=== PATIENT | female | born 1950 | race Caucasian/White ===

== ENCOUNTER 2017-11-30 12:00 | Emergency (ER) | payer MEDICAID ==
--- NOTE | 2017-11-30 14:59 | ULT ---
LEFT LOWER EXTREMITY VENOUS DOPPLER WITH SPECTRAL ANALYSIS AND COLOR FLOW EVALATION: DATE: 11/30/17. HISTORY: Left lower extremity pain and swelling for 1 week. Left leg edema. FINDINGS: Cope scale, color flow, Doppler evaluation, and spectral analysis of the left lower extremity venous structures is performed with 2D imaging. The left lower extremity common femoral, superficial femora l, popliteal, posterior tibial, most proximal greater saphenous, and profunda femoral veins are image d. There is normal lumen compressibility, flow, and augmentation in the visualized deep venous structure s of the left lower extremity. IMPRESSION: No evidence of a deep vein thrombosis involving the visualized deep venous structures left lower extr emity. POS: [facility]
== END 2017-11-30 14:55 | disposition home or self-care (01) ==
LOC: ERS 12:00
DX: R60.0 Localized edema (principal); E78.5 Hyperlipidemia, unspecified; F17.210 Nicotine dependence, cigarettes, uncomplicated

== ENCOUNTER 2017-12-09 13:15 | Outpatient (CLI) | payer MEDICARE, MEDICAID | END 2017-12-09 13:16 | disposition home or self-care (01) | LOC: BICRAD 13:15 | PROVIDERS: ATTEND Internal Medicine | DX: J44.9 Chronic obstructive pulmonary disease, unspecified (principal) | CPT/HCPCS: 71046 ==

== ENCOUNTER 2017-12-28 15:36 | Emergency (ER) | payer MEDICARE, OTHER ==
[2017-12-28 16:24] LABS: Hemoglobin 12.8 g/dL (12.0-16.0); Mean Corpuscular HGB CONC 33.6 g/dL (32.0-36.0); Mean Corpuscular Hemoglobin 32.1 pg (27.0-31.0); Mean Corpuscular Volume 95.5 fl (81.0-99.0); Mean Platelet Volume 6.6 fL (7.4-10.4); Platelet Count 160 thou/uL (130-400); RBC Distribution Width 12.8 % (11.5-14.5); White Blood Cell (WBC) Count 6.3 thou/uL (4.8-10.8)
[2017-12-28 16:43] LABS: ALT (SGPT) 50 U/L (8-55); AST (SGOT) 90 U/L (5-34); Albumin 2.9 g/dL (3.4-4.8); Alkaline Phosphatase 128 U/L (40-150); Anion Gap 10 mmol/L (10-20); BUN (Urea Nitrogen) 11 mg/dL (9.8-20.1); Bilirubin, Total 1.1 mg/dL (0.2-1.2); Calc. Creatinine Clearance 0 mL/min (70-130); Calcium 8.3 mg/dL (7.8-10.44); Carbon Dioxide 24 mmol/L (23-31); Chloride 108 mmol/L (98-107); Eosinophils 1 % (0-10); Estimated GFR-MDRD Greater than 90; Globulin 2.3 g/dL (2.4-3.5); Glucose 146 mg/dL (80-115); Lipase 58 U/L (8-78); Lymphocytes 6 % (21-51); MDiff Complete? YES; Monocytes 9 % (0-10); Neutrophil 84 % (42-75); PLT Morphology Comment Appears Adequate; Potassium 3.7 mmol/L (3.5-5.1); Protein, Total 5.2 g/dL (6.0-8.3); Sodium 138 mmol/L (136-145)
[2017-12-28 16:47] LABS: CKMB 0.8 ng/mL (0-6.6); Troponin I Less than 0.010 ng/mL (< 0.028)
[2017-12-28] MEDS ORDERED: Ibuprofen 200 MG TAB ONE (16:49)
--- NOTE | 2017-12-28 17:53 | RAD ---
AP VIEW CHEST: INDICATIONS: History of abdomen and leg swelling with shortness of breath. FINDINGS: No focal consolidation is evident. No definite pleural effusion is noted. Heart size and pulmonary vasculature are within normal limits. No acute osseous abnormality is evident. IMPRESSION: No focal consolidation, pleural effusion, or pneumothorax demonstrated. POS: [facility]
== END 2017-12-28 18:00 | disposition home or self-care (01) ==
LOC: ERS 15:36
DX: M79.89 Other specified soft tissue disorders (principal); E78.5 Hyperlipidemia, unspecified; F17.210 Nicotine dependence, cigarettes, uncomplicated; Z79.899 Other long term (current) drug therapy
CPT/HCPCS: 71045; 80053; 82553; 83690; 83880; 84484; 85025; 93005

== ENCOUNTER 2017-12-31 08:41 | Outpatient (CLI) | payer MEDICARE, OTHER ==
[2017-12-31] MEDS ORDERED: ISOVUE-370 76%-LOCM 1 ML ONE (11:37)
== END 2017-12-31 08:42 | disposition home or self-care (01) ==
LOC: BICCT 08:41
PROVIDERS: ATTEND Internal Medicine
DX: R60.0 Localized edema (principal); M79.89 Other specified soft tissue disorders; R18.8 Other ascites; R16.1 Splenomegaly, not elsewhere classified; J90 Pleural effusion, not elsewhere classified; K44.9 Diaphragmatic hernia without obstruction or gangrene; Z90.49 Acquired absence of other specified parts of digestive tract
CPT/HCPCS: 74177

== ENCOUNTER 2018-01-15 07:30 | Day surgery (SDC) | payer MEDICARE, MEDICAID ==
[2018-01-15 08:06] LABS: INR-International Normal Ratio 1.5; PTT 34.9 SEC (22.9-36.1)
[2018-01-15] MEDS ORDERED: Sodium Bicarbonate 2.5 MEQ/5 ML VIAL ONE (08:33)
--- NOTE | 2018-01-15 10:37 | ULT ---
ULTRASOUND GUIDED ABDOMINAL PARACENTESIS: Date: 01/15/18 INDICATION: Cirrhosis with ascites. FINDINGS: 4900 mL of yellow, cloudy ascitic fluid removed from the right lower quadrant. PROCEDURE NOTE: Four quadrant ultrasound shows moderate ascites in all quadrants. Right lower quadrant was chosen for puncture. The overlying skin was prepped and draped in the sterile manner. Local anesthesia was admi nistered with lidocaine and bicarb. Tiny incision made. A 5 [place] [employer] catheter with needle in place was introduced into the ascitic fluid in the right lower quadrant under ultrasound guidance. Cathete r was advanced as needle was removed. Catheter was attached to suction drainage. 4900 mL of yellowish , cloudy removed. There were no problems or complications. POS: [facility]
[2018-01-15 11:07] LABS: BF Color Yellow; Body Fluid Source Ascites Body Fluid; Clarity Hazy (Clear); Tube # EDTA
[2018-01-15 11:09] LABS: BF WBC/Nonhematics Ct. - Manua 175 /cumm
[2018-01-15 11:10] LABS: BF RBC Count - Manual 255 /cumm
[2018-01-15 11:34] LABS: BF Segmented Neutrophils 21 %; Cell Count Non Hematic 60 %; Lymphocytes 19 %
[2018-01-15 12:25] LABS: Ref Lab Test Ordered FL NA; Reference Lab Name LABCORP
[2018-01-15 14:57] VITALS: BP 138/75; TEMP 98.5
[2018-01-15 15:08] VITALS: BMI 26.0
== END 2018-01-15 09:30 | disposition home or self-care (01) ==
LOC: ULT 07:30
PROVIDERS: ATTEND Internal Medicine Gastroenterology
PROC: 0W9G3ZZ Drainage of Peritoneal Cavity, Percutaneous Approach (ICD-10-PCS; principal; 2018-01-15)
PROC: BW40ZZZ Ultrasonography of Abdomen (ICD-10-PCS; 2018-01-15)
DX: R18.8 Other ascites (principal); K74.60 Unspecified cirrhosis of liver; Z79.51 Long term (current) use of inhaled steroids; Z79.899 Other long term (current) drug therapy
CPT/HCPCS: 36415; 49083; 82042; 84157; 85060; 85610; 85730; 87070; 87116; 87205; 87206; 89051

== ENCOUNTER 2018-10-22 08:04 | Outpatient (CLI) | payer MEDICARE, MEDICAID ==
[2018-10-22] MEDS ORDERED: Gadobenate Dimeglumine 529 MG/1 ML (20ML VIAL) ONE (12:38)
--- NOTE | 2018-10-25 11:28 | MRI ---
MRI ABDOMEN WITH AND WITHOUT CONTRAST: Date: 10/22/18 HISTORY: R18.8 ascites, B18.2 chronic hepatitis. Abnormal liver function tests. COMPARISON: None. FINDINGS: No pleural effusion. No pericardial effusion. Within hepatic segment VIII is a mass measuring 2.3 cm, which does not have arterial phase hyperenhan cement, although has an enhancing capsule. No significant washout. There are intrinsic T1 hyperintense nodules in hepatic segment VII measures 7.0 mm and 8.0 mm on axia l series 1, images 19 and 25, respectively, suggesting regenerative nodules. The hepatic segment VIII mass is not seen on the prior CT from 12/31/17. Spleen is unremarkable. Adrenal glands unremarkable. No hydronephrosis. No abnormal renal enhancing m ass. Aortic contour is nonaneurysmal. Background marrow signal appears normal Simple cyst inferior pole left kidney measuring 4.0 mm. No dilated loops of bowel in the abdomen. Paraspinal musculature is normal. IMPRESSION: 1. 2.3 cm mass hepatic segment VIII is LI-RADS 4: Probably HCC. This mass does not have arterial ph ase hyperenhancement, although does have an enhancing capsule without washout. This mass was not seen on the CT abdomen or pelvis dated 12/31/17, and this could be due to location and the differences in modalities, although if you count threshold growth as not seen on prior examination, this would make this a LI-RADS 5. Either way, this is highly suspicious for hepatocellular carcinoma and appropriate action should be taken. 2. Interval resolution of ascites seen on the 12/31/17 examination. 3. No other acute abnormality within the abdomen or pelvis. 4. Mild background hepatic cirrhosis. POS: [facility]
== END 2018-10-22 08:05 | disposition home or self-care (01) ==
LOC: MRI 08:04
PROVIDERS: ATTEND Physician Assistant Medical
DX: B18.2 Chronic viral hepatitis C (principal); K70.31 Alcoholic cirrhosis of liver with ascites; R97.8 Other abnormal tumor markers; R19.4 Change in bowel habit; I85.00 Esophageal varices without bleeding; R16.0 Hepatomegaly, not elsewhere classified
CPT/HCPCS: 74183; 82565; A9577

== ENCOUNTER 2020-05-28 06:15 | Outpatient (CLI) | payer MEDICARE, OTHER ==
[2020-05-29 13:00] LABS: SARS-CoV-2 MS2 Positive; SARS-CoV-2 N Gene Negative; SARS-CoV-2 S Gene Negative; SARS-CoV-2 by NAA Not Detected (NotDetected); SARS-CoV-2 orf1ab Negative
== END 2020-05-28 06:16 | disposition home or self-care (01) ==
LOC: LABBT 06:15
PROVIDERS: ATTEND Internal Medicine Gastroenterology
DX: Z20.828 Contact with and (suspected) exposure to other viral communicable diseases (principal)
CPT/HCPCS: 87635; U0003

== ENCOUNTER 2020-05-31 08:29 | Day surgery (SDC) | payer MEDICARE, MEDICAID ==
[2020-05-29 11:42] VITALS: BMI 23.6
[2020-05-31] MEDS ORDERED: PROPOFOL 200 MG/20 ML VIAL ONE (10:22)
[2020-05-31] MEDS ORDERED: Lidocaine 1% PF 5 ML VIAL ONE (10:22)
--- NOTE | 2020-05-31 14:33 | OP ---
DATE OF PROCEDURE: 05/31/2020 TITLE OF PROCEDURE: Esophagogastroduodenoscopy with biopsy. PREPROCEDURE DIAGNOSES: 1. Cirrhosis. 2. History of small esophageal varices, surveillance exam. POSTPROCEDURE DIAGNOSES: 1. Exam to 2nd portion of duodenum. 2. Grade 1-2 distal esophageal varices with no sign of recent or active bleeding. 3. Small hiatal hernia. 4. Few erosions in the distal esophagus, not biopsied. 5. Mild diffuse portal gastropathy involving body of the stomach, biopsied. 6. No duodenal or gastric ulcer. 7. Normal duodenum. PROCEDURE IN DETAIL: Written informed consent was obtained. The patient was brought to the endoscopy suite. Total intravenous anesthesia was administered by Tyrell Lees CRNA. The patient was placed in the left lateral decubitus position. A bite block was inserted into the mouth. A [employer]ax video diagnostic gastroscope was introduced into the oral cavity and the esophagus was carefully intubated. The gastroscope was advanced under direct visualization to the 2nd portion of the duodenum. ENDOSCOPIC FINDINGS: Revealed a small, grade 1-2 distal esophageal varices. One column of grade 2 varix was noted from 33 cm to 37 cm from the incisors. With adequate insufflation, all of the varices flattened adequately to me all the varices flattened. There is no evidence of recent or active bleeding from the esophageal varices. A few small erosions were noted at the GE junction, but were not biopsied. A small less than 1 cm sliding hiatal hernia was also noted. The stomach was entered and carefully examined. This included a retroflexed view of the cardia and fundus. No gastric varices or ulcer was identified. Mucosal changes consistent with mild portal gastropathy was noted in the body of the stomach and biopsies were obtained for histology. The duodenum from the bulb to the 2nd portion was then inspected and appeared grossly normal. No duodenal varices were identified. The stomach was decompressed as the endoscope was completely removed from the patient. There were no immediate complications. She was transferred to the Day Stay surgery area for postprocedure monitoring. RECOMMENDATIONS: 1. Await biopsy results. 2. Initiate omeprazole for 20 mg daily for the next 4 weeks. 3. Repeat EGD in one year for varices surveillance. 4. Follow up with me in the office in 6 months. 5. Continue to follow up with [facility] in [place] for ongoing treatment of her liver cancer. 6. Resume previous diet and medications. Job ID: [id number] MTDD
== END 2020-05-31 11:00 | disposition home or self-care (01) ==
LOC: SDC 08:29
PROVIDERS: ATTEND Internal Medicine Gastroenterology
PROC: 0DB68ZX Excision of Stomach, Via Natural or Artificial Opening Endoscopic, Diagnostic (ICD-10-PCS; principal; 2020-05-31)
DX: K70.30 Alcoholic cirrhosis of liver without ascites (principal); I85.10 Secondary esophageal varices without bleeding; K44.9 Diaphragmatic hernia without obstruction or gangrene; K22.10 Ulcer of esophagus without bleeding; K31.89 Other diseases of stomach and duodenum; C22.0 Liver cell carcinoma; B18.2 Chronic viral hepatitis C; M19.90 Unspecified osteoarthritis, unspecified site; J45.909 Unspecified asthma, uncomplicated; I10 Essential (primary) hypertension; Z86.73 Personal history of transient ischemic attack (TIA), and cerebral infarction without residual deficits; Z87.891 Personal history of nicotine dependence; Z79.01 Long term (current) use of anticoagulants; Z79.899 Other long term (current) drug therapy
CPT/HCPCS: 88305; 88312; J2704

== ENCOUNTER 2020-08-14 14:42 | Inpatient (IN) | payer MEDICARE, OTHER ==
[~2020-08-14 14:42] MED LIST: Iopamidol-370 76% 500 ML 1 ML ONE
[2020-08-14 15:41] LABS: #Basophils 0.1 thou/uL (0.0-0.2); #Eosinphils 0.1 thou/uL (0.0-0.7); #Lymphocytes 0.6 thou/uL (1.20-3.40); #Monocytes 1.4 thou/uL (0.11-0.59); #Neutrophils 8.4 thou/uL (1.40-6.50); %Basophils 1.1 % (0.0-1.0); %Eosinophils 0.9 % (0.0-10.0); %Lymphocytes 5.7 % (21.0-51.0); %Monocytes 13.3 % (0.0-10.0); Hemoglobin 14.3 g/dL (12.0-16.0); Mean Corpuscular HGB CONC 32.8 g/dL (32.0-36.0); Mean Corpuscular Hemoglobin 31.6 pg (27.0-31.0); Mean Corpuscular Volume 96.2 fL (78.0-98.0); Mean Platelet Volume 6.5 fL (7.4-10.4); Platelet Count 130 thou/uL (130-400); RBC Distribution Width 14.5 % (11.5-14.5); Red Blood Cell (RBC) Count 4.54 mill/uL (4.20-5.40); White Blood Cell (WBC) Count 10.6 thou/uL (4.8-10.8)
[2020-08-14 15:48] LABS: INR-International Normal Ratio 1.4; PTT 35.4 sec (22.9-36.1); Prothrombin Time 17.1 sec (12.0-14.7)
--- NOTE | 2020-08-14 15:58 | RAD ---
PORTABLE CHEST: 08/14/20 PROVIDED CLINICAL HISTORY: Shortness of breath. FINDINGS: Comparison 03/28/20. There is a large right pleural effusion with presumed adjacent passive atelectasis involving the righ t lung. The visualized cardiac and mediastinal silhouette is within normal limits. The left lung appe ars clear. There is no evidence for pneumothorax. IMPRESSION: Large right pleural effusion. POS: [facility]
[2020-08-14 16:06] LABS: ALT (SGPT) 44 U/L (8-55); AST (SGOT) 64 U/L (5-34); Albumin 3.1 g/dL (3.4-4.8); Alkaline Phosphatase 141 U/L (40-110); Anion Gap 15 mmol/L (10-20); BUN (Urea Nitrogen) 33 mg/dL (9.8-20.1); Bilirubin, Total 3.1 mg/dL (0.2-1.2); Calc. Creatinine Clearance 0 mL/min (70-130); Carbon Dioxide 25 mmol/L (23-31); Chloride 95 mmol/L (98-107); Glucose 157 mg/dL (80-115); Potassium 5.8 mmol/L (3.5-5.1); Protein, Total 6.1 g/dL (6.0-8.3); Sodium 129 mmol/L (136-145)
[2020-08-14] MEDS ORDERED: Dextrose 5% in Water 1,000 ML IV PRN (16:34)
[2020-08-14] MEDS ORDERED: Dextrose 50% Abboject 50 ML SYRINGE SLOW IVP PRN (16:34)
[2020-08-14] MEDS ORDERED: Bisacodyl 10 MG SUPP PR PRN (16:34)
[2020-08-14] MEDS ORDERED: Senokot S 8.6-50 MG TAB PO PRN (16:34)
[2020-08-14] MEDS ORDERED: Calcium Carbonate 500 MG ChewTAB PO PRN (16:34)
[2020-08-14] MEDS ORDERED: Ondansetron PF 4 MG/2 ML Vial IVP PRN (16:34)
--- NOTE | 2020-08-14 17:16 | HP ---
REASON FOR ADMISSION: Progressive worsening of lower extremity swelling, shortness of breath, severe orthopnea, history of liver cancer with metastasis. HISTORY OF PRESENTING ILLNESS: The patient gives history of going to [facility] Room twice in the last week and has gotten doses of Lasix for increasing edema in lower extremities. This was getting worse to the point that she was unable to lie down. She went to see Dr. Alyse Drubin, her GI specialist, here and was asked to come to the emergency room for hospitalization. She uses cane to mobilize herself. She has known history of liver cancer and has been on chemotherapy at [facility]. She is unable to recall the name of her oncologist. She does not know the name of the chemo medications she is on. No complaints of abdominal pain as such. No nausea or vomiting. She has not been able to eat or drink for last week or so due to increasing fluid in her belly and lower extremities and thinks that there is fluid in her lungs. PAST MEDICAL AND SURGICAL HISTORY: History of liver cancer, on chemotherapy, the details of which the patient is not able to provide me. She has either hepatitis B or C which was apparently treated per the patient and again she is not so sure. The patient is a poor historian. She tells me to call her son, but he is not available on the phone, and needs multiple prompting to be spoken to. We will try to obtain further history from Dr. Durbin's office. Appendectomy, cholecystectomy, hysterectomy, dyslipidemia. The patient is on Eliquis, likely from arrhythmias or DVT which she is not able to provide me the details again. CURRENT MEDICATIONS: The patient is on: 1. K-Dur. 2. Metformin extended release 500 mg p.o. daily. 3. Spironolactone 100 mg p.o. daily. 4. [place] p.r.n. for pain. 5. Lasix 20 mg twice daily. 6. Glipizide 2.5 mg p.o. daily. 7. Omeprazole 20 mg p.o. daily. 8. Canagliflozin 100 mg p.o. daily. 9. Lipitor 5 mg p.o. at bedtime. 10. Nadolol 20 mg p.o. daily. ALLERGIES: NO KNOWN DRUG ALLERGIES. PERSONAL HISTORY: Does not abuse alcohol or drugs. No history of smoking. She ambulates with a cane. FAMILY HISTORY: Mother in her 80s, she of natural causes. Father at the age of 78, she does not recall the exact cause of his . CODE STATUS: Do not attempt to resuscitate. Power of health care attorney is her son. REVIEW OF SYSTEMS: CONSTITUTIONAL: Negative for weight loss or gain, ability to conduct usual activities. SKIN: Negative for rash, itching. EYES: Negative for double vision, pain. ENT/MOUTH: Negative for nose bleeding, neck stiffness, pain, tenderness. CARDIOVASCULAR: Negative for palpitations, dyspnea on exertion, orthopnea. RESPIRATORY: Negative for shortness of breath, wheezing, cough, hemoptysis, fever or night sweats. GASTROINTESTINAL: Negative for poor appetite, abdominal pain, heartburn, nausea, vomiting, constipation, or diarrhea. GENITOURINARY: Negative for urgency, frequency, dysuria, nocturia. MUSCULOSKELETAL: Negative for pain, swelling. NEUROLOGIC/PSYCHIATRIC: Negative for anxiety, depression. ALLERGY/IMMUNOLOGIC: Negative for skin rash, bleeding tendency. PHYSICAL EXAMINATION: GENERAL: The patient is a 69-year-old female, who is currently in [id number] respiratory distress with shortness of breath. VITAL SIGNS: Blood pressure 140/64, pulse 96 per minute, respiratory rate 20 per minute, temperature 97.4 degrees Fahrenheit, saturating 94% on room air. NECK: Supple. No elevated JVD. EYES: There is icterus plus. Pupils are reacting to light. ORAL CAVITY: Mucous membranes are dry. No exudates or congestion. CARDIOVASCULAR SYSTEM: S1 and S2 heard, regular rhythm. RESPIRATORY SYSTEM: There is decreased air entry in the right infrascapular area. ABDOMEN: Distended, has diffuse tenderness. No rigidity or guarding. The patient likely has ascites with fluid thrill. EXTREMITIES: There is 2+ peripheral edema. No calf tenderness. VASCULAR SYSTEM: Peripheral pulses 1+ bilateral. No ischemic ulcers or gangrene. CENTRAL NERVOUS SYSTEM: No gross focal deficits noted. The patient is alert and oriented well. PSYCHIATRIC SYSTEM: The patient is a bit irritable due to shortness of breath, otherwise no hallucinations or delusions. LABORATORY DATA: Chest x-ray done shows large right pleural effusion. Sodium 129, potassium 5.8, BUN 33, creatinine 0.7, serum bicarb 25, serum glucose 157, AST 64, ALT 44, total bilirubin 3.1, alkaline phosphatase 141. BNP 52. Albumin 3.1. PT and INR 17 and 1.4, PTT 35. White count of 10, H and H 14 and 43, platelet count is 130, MCV is 96 with 79% neutrophils. EKG done shows sinus tach at 104 beats per minute. CLINICAL IMPRESSION AND PLAN: The patient will be admitted to medical floor for anasarca with history of liver cancer and metastasis. The patient is unable to tell me the prognosis of her cancer and wants me to talk to Dr. Durbin regarding the same. She is also unable to provide who her oncologist is at [facility] to obtain more details. We will try to obtain all this information from Dr. Alyse Durbin, her primary felt checker here. She will be on Lasix 40 mg IV at [address] a[address] Armendariz, felt checker, has been consulted from ER. We will continue her spironolactone and nadolol along with Pepcid and Ultram. The patient does not want to be resuscitated. She has expressed that at bedside to me here. We will obtain consultation with Dr. Bell in view of likely right-sided pleural effusion from liver cancer with either due to low albumin or maybe because of cancer for possible PleurX catheter for self drainage if the patient agrees. She has orthopnea and likely will refill her pleural space along with ascites plus the peripheral edema which is making her miserable at present. Likely, this might give her comfort. Job ID: [id number]
--- NOTE | 2020-08-14 18:00 | CT ---
CT ABDOMEN AND PELVIS WITH IV CONTRAST 08/14/2020 CLINICAL INFORMATION: Abdominal pain, history of liver cancer. Lower extremity swelling for 5 days. COMPARISON: 12/31/2017 and MRI abdomen on 03/29/2020 Technique: Multiple contiguous axial CT images are obtained through the abdomen and pelvis with IV contrast. Cor onal reformatted images are provided. FINDINGS: Lower Chest: Partial visualization of a moderately large right pleural effusion. There is consolidati on at the right lung base probably attributable to passive atelectasis, but pneumonia would be difficult to exclude. Left lung base is clear. Vessels: Vascular calcifications are seen in the abdominal aorta and involving the iliac arteries. Abdomen: Portal vein:There is occlusion of the main portal vein as well as the right and left portal veins wit h findings suggestive of mild cavernous transformation in the bigg hepatis. Prominent varices are seen in the region of the gastrohepatic ligament as well as prominent esophageal varices. Filling def ects are also seen extending into the splenic vein and into the superior mesenteric vein compatible with thrombus. Gallbladder: Surgically removed. Liver: Liver is small in size with cirrhotic morphology. Previously noted large mass in involving the right hepatic lobe is much smaller in size with heterogeneity present in this region on today's exam. Area of heterogeneity is greater in the region of the dome of the liver. No new lesion is appre ciated. Spleen: Not enlarged and has a normal appearance. Pancreas: within normal limits. Adrenals: within normal limits. Kidneys: within normal limits. Bowel: The colon is decompressed, but the rutledge of the colon do appear mildly thickened. These findin gs could be related to colitis or possibly secondary to venous congestion related to the occluded portal vein and partial thrombus in the superior mesenteric vein. Rutledge of portions of the duodenum a lso appear mildly thickened which could be related to venous congestion and/or peristalsis. There are no findings to suggest a bowel obstruction. Appendix: Not definitely visualized. Peritoneum: There is a small amount of ascites predominantly in the pelvis. There is also evidence of prominent mesenteric edema. No fluid collection is seen. Mesentery and Retroperitoneum: No enlarged mesenteric or retroperitoneal lymph nodes. Abdominal Wall: Mild subcutaneous edema is seen. There is suggestion of mild skin thickening involvin g each breast. Pelvis: Reproductive Organs: Evidence of hysterectomy. Bladder: Mostly decompressed and not well evaluated. Bones: No suspicious lytic or sclerotic osseous lesions are identified. IMPRESSION: 1. Moderately large right pleural effusion incompletely imaged with associated consolidation probably attributable to passive atelectasis. Pneumonia right lung base cannot be excluded. 2. Cirrhotic morphology of the liver. The large mass in the right hepatic lobe has decreased in size compared to prior exam but heterogeneity in the right hepatic lobe does persist. 3. Portal vein thrombosis with thrombus extending into the splenic vein near the confluence as well a s extending into the superior mesenteric vein. 4. Small amount of ascites and prominent mesenteric edema. Mesenteric edema is likely related to veno us congestion. 5. Prominent esophageal varices as well as prominent varices in the region of the gastrohepatic ligam ent with evidence of cavernous transformation at the bigg hepatis. 6. Mild thickening involving the colon extending from the cecum to the distal descending colon. This may in part be related to incomplete distention and venous congestion. Colitis cannot be entirely excluded.
--- NOTE | 2020-08-14 19:01 | CT ---
CTA OF THE CHEST WITH CONTRAST 08/14/20 COMPARISON: Chest x-ray 08/14/20 and 03/28/20. MRI of the abdomen 03/29/20. HISTORY: Lower extremity swelling for four to five days with increased difficulty with breathing. Patient has liver cancer and is on chemotherapy for the liver cancer. TECHNIQUE: Multiple contiguous axial images were obtained in a CTA of the chest with contrast per pulmonary embo lism protocol. 3D oblique MIP reformats and direct coronal reformats were performed. FINDINGS: The pulmonary arteries are well opacified without filling defects to suggest pulmonary emboli. The he art is normal in size without focal cardiac abnormality. No hilar or mediastinal lymphadenopathy is s een. There is a moderate right pleural effusion with adjacent atelectasis. This has developed since the chest x-ray from 03/28/20. No focal infiltrates are seen in the lungs. No left sided pleural effusion is seen. No focal osseous abnormality is seen. Diffuse soft tissue anasarca is present. The liver is nodular a nd cirrhotic. There is an abnormal morphology of the right lobe of the liver which may represent the patient's right sided hepatic mass seen on prior MRI. There is likely still thrombus within the bigg l vein which is enlarged with extension of the thrombus into the superior mesenteric vein. There are mildly enlarged retroperitoneal and bigg hepatis lymph nodes. Varices are seen in the splenic region and retroperitoneum. There is thickening of the gastroesophageal junction of the distal esophagus. IMPRESSION: 1. No evidence of pulmonary thromboembolism. 2. Moderate right pleural effusion with adjacent atelectasis. This has developed since the chest x-ray on 03/28/20. 3. Cirrhotic liver with mass in the right lobe of the liver. There is thrombus in the portal vei n extending into the superior mesenteric vein and enlarged lymph nodes in the abdomen. POS: [facility]
[2020-08-14 19:29] LABS: Troponin I Less than 0.010 ng/mL (< 0.028)
[2020-08-14] MEDS: Mometasone 200 MCG/Formoterol 5 MCG 120 PUFF INHALER INH SCH ×2 (19:49→22:30)
[2020-08-14] MEDS ORDERED: Heparin 5,000 UNITS/ML VIAL SC SCH (21:00)
[2020-08-14 21:18] LABS: Hemoglobin 13.5 g/dL (12.0-16.0); Platelet Count 115 thou/uL (130-400)
[2020-08-14 21:44] LABS: Troponin I Less than 0.010 ng/mL (< 0.028)
--- NOTE | 2020-08-14 21:54 | ULT ---
BILATERAL LOWER EXTREMITY VENOUS ULTRASOUND: 08/14/20 COMPARISON: None. HISTORY: Bilateral lower extremity pain and edema. TECHNIQUE: Multiplanar arzate scale and color Doppler images were obtained in a bilateral lower extremity venous ultrasound. Spectral analysis of the Doppler waveforms were performed. FINDINGS: The bilateral common femoral veins, profunda femoral veins, and superficial femoral veins and poplite al veins are normal in appearance without visible thrombus. These vessels demonstrate normal compress ion, flow and augmentation. The posterior tibial veins and greater saphenous veins are also patent. IMPRESSION: No evidence of DVT. POS: [facility]
[2020-08-14] MEDS: Heparin 10,000 UNITS/ 10 ML VIAL SLOW IVP SCH (22:56)
[2020-08-14] MEDS: Heparin 25,000 units/D5W 500 ML IVPB SCH (22:58)
[2020-08-14] MEDS: Famotidine 20 MG TAB PO SCH (22:58)
--- NOTE | 2020-08-15 02:22 | CON ---
DATE OF CONSULTATION: 08/14/2020 REASON FOR CONSULTATION: History of cirrhosis with hepatocellular carcinoma, possible GI bleeding. CONSULTING PROVIDER: Dr. Rodney Hawkins. HISTORY OF PRESENT ILLNESS: The patient is a 69-year-old female with past medical history of osteoarthritis, asthma, hypertension, prior CVA, chronic hepatitis C, status post treatment with Epclusa in 2018, and cirrhosis of the liver complicated by ascites and hepatocellular carcinoma for which the patient is undergoing chemotherapy, presenting with complaints of shortness of breath, anasarca, and possible melenic-type stool. She states that she was in her usual state of health until approximately 3-4 days ago when she began having significantly increased lower extremity edema that was accompanied by increased abdominal swelling and weight gain. She describes that during this period, she had been having a decreased appetite and was not eating her normal food stuffs, although she was not consuming higher salt content meals at that time as well. Over the next few days, it slowly progressed into increased shortness of breath with difficulty breathing, and ultimately prompted her to be seen at the [facility] ER at which point, they diagnosed her with what sounds like a possible pleural effusion. She was given some diuretic therapy and discharged to home. With nonresponse to the oral diuretics, the patient ultimately came to the GI Clinic for further evaluation and was noted to have again significant shortness of breath with conversational dyspnea. However, she also stated she had approximately one black stool around 3 days ago that was semi solid/liquid in consistency, and easy to clean off. She denies any use of iron supplementation or Pepto-Bismol. However, this one episode of black stool resolved. After this particular episode, she has not had any further episodes since. Other than the above symptoms, she currently denies any nausea, vomiting, fevers, chills, hematemesis, hematochezia, dysphagia, odynophagia, constipation or weight loss. REVIEW OF SYSTEMS: 10-category review of systems was obtained with all responses negative except for the pertinent positives as listed in HPI. PAST MEDICAL HISTORY: As per HPI. PAST SURGICAL HISTORY: Appendectomy, cholecystectomy, hysterectomy, and recent chemotherapy/radiation for HCC. FAMILY HISTORY: Denies any GI malignancies. SOCIAL HISTORY: Denies any tobacco, alcohol, or illicit drug use. OUTPATIENT MEDICATIONS: Reviewed. ALLERGIES: NO KNOWN DRUG ALLERGIES. PHYSICAL EXAMINATION: VITAL SIGNS: Pulse 97, blood pressure 131/75, respiratory rate 24, saturating 91% on room air. GENERAL: The patient was sitting in a chair at bedside, in no acute distress. Alert and oriented x4. HEENT: Normocephalic, atraumatic. NECK: Supple. No JVD noted, but mild scleral icterus noted. CARDIOVASCULAR: Tachycardic rate, but regular rhythm with no discernible murmurs, gallops, or rubs. RESPIRATORY: Clear to auscultation in the left upper and left lower lobes, however, decreased breath sounds were auscultated in the right upper lobe with mild crackles and significantly decreased/diminished breath sounds in the right lower lobe. ABDOMEN: Normoactive bowel sounds. Soft. Mild abdominal distention, tenderness to palpation in all abdominal quadrants. EXTREMITIES: 2+/3+ edema noted in the bilateral lower extremities and extending into the thighs and lower abdomen. LABORATORY DATA: CBC with a white blood cell count of 10.6, hemoglobin 14.3, hematocrit 43.7, platelets 130. Chemistry with a sodium of 129, potassium 5.8, chloride 95, CO2 of 25, BUN 33, creatinine 0.77, glucose 157, AST 64, ALT 44, alkaline phosphatase 141, total bilirubin 3.1, albumin 3.1. INR 1.4. IMAGING DATA: CT of the abdomen and pelvis was obtained on August 14, 2020, which showed partial visualization of a moderately large right pleural effusion with consolidation of the right lung base, probably attributed to passive atelectasis, but pneumonia could not be excluded at this time. Also seen were an occlusion of the main portal vein as well as the right and left portal veins with findings suggestive of mild cavernous transformation in the bigg hepatis. Prominent varices were seen in this region, however, filling defects were also seen extending into the splenic vein and into the superior mesenteric vein compatible with a nonocclusive thrombus. The liver was small in size with cirrhotic morphology. The previously noted large mass involving the right hepatic lobe was actually much smaller when compared to prior examination. No new lesions were appreciated. The colon also did show a decompressed nature with possible mildly thickened rutledge, but no evidence of obstruction. A small amount of ascites was predominantly seen only in the pelvis, but did show evidence of prominent mesenteric edema. Her abdominal ultrasound was also obtained on August 14, 2020, with results still pending at this time. Paracentesis was also performed on August 14, 2020, with no pockets of fluid, able to be found large enough to perform paracentesis. ASSESSMENT AND PLAN: The patient is a 69-year-old female with past medical history of osteoarthritis, asthma, hypertension, cerebrovascular accident, chronic hepatitis C, status post treatment in 2018, and cirrhosis complicated by prior ascites and hepatocellular carcinoma, currently undergoing chemotherapy/radiation, now presenting with anasarca and extension of the portal vein thrombosis into the splenic vein and superior mesenteric vein. Anasarca/portal vein thrombosis: The patient is presenting with a fairly acute onset of significant lower extremity edema extending into the lower abdomen with minimal amount of ascites seen on both physical examination and current imaging, however, on imaging there is noted an extension of the portal vein thrombus now extending into the splenic vein and the superior mesenteric vein, which could be potentially contributing to increased portal pressures and edema in the lower extremities and abdomen. When compared to an MRI obtained in March 2020 this is extension of thrombus into the superior mesenteric vein and splenic vein is a new finding, and will need to be intervened upon given the increased risk of small bowel infarction if allowed to continue. This finding could also to passive venous congestion and contribute to the abdominal pain exhibited on physical examination today. Recommendations: 1. Would start the patient on a heparin drip with careful monitoring of the patient for possible gastrointestinal bleeding, especially in light of her recent black stool. 2. Would continue to trend her H and H and transfuse as necessary to maintain an H and H of 7/21. 3. Continue to monitor clinically for signs of active gastrointestinal bleeding. 4. The patient will ultimately need to be placed back either on Eliquis as an outpatient on discharge or a different anticoagulation given that the fact that this extensive thrombus formed while on anticoagulation. 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 They could further lead to this formation. Given the large pleural effusion, I would think the patient would benefit from diuretic management largely with furosemide. Use of spironolactone is normally recommended in patients with cirrhosis, but given her elevated potassium, risk of hyperkalemia is increased and I would hold off on this particular medication for now. Recommendations: 1. I agree with placing the patient on furosemide 40 mg IV b.i.d. 2. Would hold spironolactone for now given her hyperkalemia. 3. Would place the patient on a low-sodium diet. Cirrhosis with hepatocellular carcinoma: The patient is presenting with a prior history of cirrhosis with most likely etiology being chronic hepatitis C infection, currently presenting with decompensated disease with a Child-Negron classification B, and calculated MELD sodium score of 21. Currently, the patient is undergoing treatment as part of her hepatocellular carcinoma with Dr. Riky Moss in [place] with most recent bout of chemotherapy/radiation approximately 2 weeks ago. It is unclear if the chemotherapy medication or the radiation may be contributing to further clot formation within the portal system or this is developing on its own. Recommendations: 1. Would continue to monitor the patient's H and H during this admission, especially in light of active malignancy and anticoagulation needed for dissolution of the superior mesenteric vein thrombus. 2. The patient will ultimately need to be discharged to outpatient clinic and followup in [place] for further treatment of her hepatocellular carcinoma. We will continue to follow. Please call with any questions. Job ID: [id number]
[2020-08-15 05:14] LABS: ALT (SGPT) 37 U/L (8-55); AST (SGOT) 51 U/L (5-34); Albumin 2.7 g/dL (3.4-4.8); Alkaline Phosphatase 119 U/L (40-110); Anion Gap 13 mmol/L (10-20); BUN (Urea Nitrogen) 28 mg/dL (9.8-20.1); Bilirubin, Total 2.6 mg/dL (0.2-1.2); Calc. Creatinine Clearance 84 mL/min (70-130); Calcium 8.2 mg/dL (7.8-10.44); Carbon Dioxide 24 mmol/L (23-31); Chloride 98 mmol/L (98-107); Globulin 2.5 g/dL (2.4-3.5); Glucose 165 mg/dL (80-115); Potassium 6.1 mmol/L (3.5-5.1); Protein, Total 5.2 g/dL (6.0-8.3); Sodium 129 mmol/L (136-145)
[2020-08-15 05:21] LABS: PTT Greater than 250.0 sec (22.9-36.1)
[2020-08-15 05:30] LABS: Band 5 % (5-11); Hemoglobin 13.3 g/dL (12.0-16.0); Lymphocytes 5 % (21-51); MDiff Complete? YES; Mean Corpuscular HGB CONC 31.7 g/dL (32.0-36.0); Mean Corpuscular Hemoglobin 31.6 pg (27.0-31.0); Mean Corpuscular Volume 99.7 fL (78.0-98.0); Monocytes 4 % (0-10); Neutrophil 84 % (42-75); Platelet Count 114 thou/uL (130-400); Platelet Morphology Comment Appears Decreased; RBC Distribution Width 14.9 % (11.5-14.5); White Blood Cell (WBC) Count 11.6 thou/uL (4.8-10.8)
[2020-08-15] MEDS: Furosemide 40 MG/4 ML VIAL SLOW IVP SCH ×2 (05:43→14:26)
--- NOTE | 2020-08-15 07:34 | ULT ---
EXAM: US Abdomen Limited PROVIDED CLINICAL HISTORY: Cirrhosis with worsening abdominal distention. COMPARISON: Abdominal ultrasound 03/29/2020 FINDINGS: Limited sonographic evaluation of the bilateral upper and lower quadrants of the abdomen was performe d. No free intraperitoneal fluid is seen in the abdomen. There was evidence of ascites on prior examination which is not appreciated on the current study. IMPRESSION: No evidence of ascites.
[2020-08-15] MEDS ORDERED: Potassium Chloride 10 MEQ TAB PO SCH (08:00)
[2020-08-15] MEDS ORDERED: Spironolactone 100 MG TAB PO SCH (08:00)
[2020-08-15 08:13] LABS: PTT Greater than 250.0 sec (22.9-36.1)
[2020-08-15 09:22] LABS: SARS-CoV-2 MS2 Positive; SARS-CoV-2 N Gene Negative; SARS-CoV-2 S Gene Negative; SARS-CoV-2 by NAA Not Detected (NotDetected); SARS-CoV-2 orf1ab Negative
[2020-08-15] MEDS: Nadolol 40 MG TAB PO SCH (09:30)
[2020-08-15] MEDS: Famotidine 20 MG TAB PO SCH ×2 (09:30→21:15)
[2020-08-15] MEDS: traMADol HCl 50 MG TAB PO PRN (09:59)
[2020-08-15] MEDS: Heparin 10,000 UNITS/ 10 ML VIAL SLOW IVP SCH (11:46)
[2020-08-15] MEDS: Mometasone 200 MCG/Formoterol 5 MCG 120 PUFF INHALER INH SCH ×2 (13:22→18:59)
--- NOTE | 2020-08-15 17:19 | PDOC.HOSPP ---
- Subjective Encounter Date: 08/15/20 Encounter Time: 17:05 Subjective: f/u for anasarca/portal vein thrombosis in context of metastatic liver carcinoma on current chemotherapy. Receiving Lasix/Spironolactone/Heparin gtt/Nadolol. Cisse catheter placed due to retention. - Objective Vital Signs & Weight: Vital Signs (12 hours) Temp Pulse Resp BP Pulse Ox 08/15/20 08:00 97.5 F L 90 16 120/56 L 97 Weight Weight 157 lb 14.4 oz Result Diagrams: 08/15/20 04:45 08/15/20 04:45 Additional Labs: Accuchecks 08/15/20 08/15/20 08/14/20 16:20 11:10 21:03 POC Glucose 122 H 114 H 149 H Microbiology 08/15/20 12:35 Stool C. difficile GDH Antigen & Toxins - Final Laboratory Tests 08/14/20 08/14/20 08/14/20 15:22 15:26 15:26 WBC 10.6 Sodium 129 L Potassium 5.8 H Total Bilirubin 3.1 H AST 64 H B-Natriuretic Peptide 52.4 SARS-CoV-2 (PCR) 08/14/20 08/15/20 23:10 04:45 WBC Sodium Potassium Total Bilirubin 2.6 H AST 51 H B-Natriuretic Peptide SARS-CoV-2 (PCR) Not Detected Radiology Reviewed by me: Yes (CT abd - + portal vein thrombus, ascites, cirrh otic liver/mass noted) Hospitalist ROS - Medication Medications: Active Medications Generic Name Dose Route Start Last Admin Trade Name Freq PRN Reason Stop Dose Admin Famotidine 20 mg 08/14/20 21:00 08/15/20 09:30 Famotidine 20 Mg Tab PO 20 mg BID JERO Administration Furosemide 40 mg 08/15/20 06:00 08/15/20 14:26 Furosemide 40 Mg/4 Ml Vial SLOW IVP 40 mg 0600,1400 JERO Administration Heparin Sodium (Porcine) 0 units 08/14/20 21:00 08/15/20 11:46 Heparin 10,000 Units/ 10 Ml Vial SLOW IVP 2,960 units ASDIR JERO Administration Protocol Heparin Sodium/Dextrose 500 mls @ 0 mls/hr 08/14/20 21:00 08/14/20 22:58 Heparin 25,000 Units/D5w IVPB 500 mls INF JERO Administration Protocol Per Protocol Mometasone Furoate/Formoterol Fumar 2 puff 08/14/20 18:30 08/15/20 13:22 Mometasone 200 Mcg/Formoterol 5 Mcg 120 Puff Inhaler INH Not Given BID-RT JERO Nadolol 20 mg 08/15/20 09:00 08/15/20 09:30 Nadolol 40 Mg Tab PO 20 mg DAILY JERO Administration Tramadol HCl 50 mg 08/14/20 16:34 08/15/20 09:59 Tramadol Hcl 50 Mg Tab PO 50 mg QIDPRN PRN Administration Moderate Pain (4-6) - Exam General Appearance: awake alert, ill appearing General - other findings: responsive, alert Eye: PERRL, scleral icterus ENT: normocephalic atraumatic, no oropharyngeal lesions Neck: supple, symmetric, no JVD, no thyromegaly, no lymphadenopathy Heart: RRR, no gallops, no rubs, normal peripheral pulses Heart - other findings: S1, S2 Respiratory: rales, tachypneic Respiratory - other findings: diminished in bases R>L Gastrointestinal: normal bowel sounds, no palpable masses, no guarding Gastrointestinal - other findings: distended, fluid wave Extremities: no cyanosis, 2+ LE edema Skin: normal turgor Neurological: cranial nerve grossly intact, no new deficit Musculoskeletal: normal tone, generalized weakness Psychiatric: A&O x 3, flat affect Hosp A/P (1) Hepatic carcinoma Code(s): C22.0 - LIVER CELL CARCINOMA Status: Chronic Plan: Receiving outpt chemotherapy, advanced process (2) Anasarca Code(s): R60.1 - GENERALIZED EDEMA Status: Acute Plan: Continue Lasix IV/Spironolactone, monitor for improvement (3) Portal vein thrombosis Code(s): I81 - PORTAL VEIN THROMBOSIS Status: Acute Plan: Continue Heparin gtt, likely will need OAC for d/c (4) Hyperkalemia Code(s): E87.5 - HYPERKALEMIA Status: Acute Plan: Continue Lasix IV, serial K+ monitoring (5) Hepatic cirrhosis Code(s): K74.60 - UNSPECIFIED CIRRHOSIS OF LIVER Status: Chronic Plan: Continue Spironolactone/Lasix/Nadolol (6) Diabetes mellitus type II, controlled Code(s): E11.9 - TYPE 2 DIABETES MELLITUS WITHOUT COMPLICATIONS Status: Chronic Plan: ISS, hold Metformin/Glipizide, ADA - Plan cisse catheter, PT/OT, clinical social work therapist, out of bed/ambulate Consults: Palliative Care Continue diuresis with Lasix IV Continue Spironolactone Appreciate GI assistance Continue Heparin gtt Consider Pleur-X catheter Palliative care consult AM lab: CMP, CBC, PTT
[2020-08-15 21:53] LABS: PTT Greater than 250.0 sec (22.9-36.1)
[2020-08-16 04:32] LABS: ALT (SGPT) 37 U/L (8-55); AST (SGOT) 52 U/L (5-34); Albumin 2.5 g/dL (3.4-4.8); Alkaline Phosphatase 121 U/L (40-110); Anion Gap 10 mmol/L (10-20); BUN (Urea Nitrogen) 27 mg/dL (9.8-20.1); Bilirubin, Total 2.3 mg/dL (0.2-1.2); Calc. Creatinine Clearance 86 mL/min (70-130); Calcium 8.2 mg/dL (7.8-10.44); Carbon Dioxide 28 mmol/L (23-31); Chloride 95 mmol/L (98-107); Globulin 2.5 g/dL (2.4-3.5); Glucose 123 mg/dL (80-115); Sodium 128 mmol/L (136-145)
[2020-08-16 05:01] LABS: Band 3 % (5-11); Eosinophils 2 % (0-10); Hemoglobin 13.4 g/dL (12.0-16.0); Lymphocytes 9 % (21-51); MDiff Complete? YES; Mean Corpuscular HGB CONC 32.5 g/dL (32.0-36.0); Mean Corpuscular Hemoglobin 31.4 pg (27.0-31.0); Mean Corpuscular Volume 96.6 fL (78.0-98.0); Mean Platelet Volume 6.9 fL (7.4-10.4); Monocytes 20 % (0-10); Neutrophil 66 % (42-75); Platelet Count 104 thou/uL (130-400); Platelet Morphology Comment Appears Decreased; RBC Distribution Width 14.8 % (11.5-14.5); RBC Morphology Normal; Red Blood Cell (RBC) Count 4.27 mill/uL (4.20-5.40); White Blood Cell (WBC) Count 7.7 thou/uL (4.8-10.8)
[2020-08-16] MEDS: Furosemide 40 MG/4 ML VIAL SLOW IVP SCH ×2 (05:13→13:22)
[2020-08-16] MEDS: Heparin 25,000 units/D5W 500 ML IVPB SCH (05:17)
--- NOTE | 2020-08-16 06:13 | PRG ---
DATE OF SERVICE: 08/15/2020 SUBJECTIVE: Ms. Sage had a little bit of diarrhea today and C difficile has been sent, which was negative. Otherwise, she feels about the same. I am told by the nurse that she has been getting Lasix. MEDICATIONS: 1. Pepcid 20 mg b.i.d. 2. Furosemide 40 mg IV q.12. 3. Glucagon 1 mg p.r.n. 4. heparin drip. 5. Insulin sliding scale. 6. Albuterol inhaler. 7. Nadolol 20 mg p.o. daily. 8. Zofran p.r.n. 9. Senna. 10. Tramadol 50 mg daily. OBJECTIVE: VITAL SIGNS: Temperature is 97.8, pulse 88, blood pressure 105/56 to 120/56, weight 157 today, not recorded yesterday. Urine output 1200 mL. LUNGS: Clear. Decreased breath sounds on the right. HEART: Regular rhythm. ABDOMEN: Soft, nontender. No palpable splenomegaly. Imaging ultrasound showed no ascites. Tap could not be done yesterday. CT chest showed no PE. Moderate right pleural effusion new since 03/28/2020, cirrhotic liver mass with thrombus in the portal vein extending into the superior mesenteric vein and large lymph nodes in the abdomen the splenic vein. These extensions are reportedly new. Cavernous transformation of the bigg hepatis change in the abdomen and esophageal varices. Last EGD 05/31/2020. Grade 1 to 2 distal esophageal varices with no stigmata. Diffuse portal gastropathy. LABORATORY DATA: Today, bilirubin is 2.6. AST and ALT are 51 and 37, alkaline phosphatase 119. ASSESSMENT: 1. Patient has had a little bit of increased fluid retention. This may be related to progression of portal vein thrombosis to splenic vein and SMV. I agree with changing anticoagulation to heparin. 2. She has a hepatoma which is nonoperable. She is not a transplant candidate. She has received radiation treatment for the clot to see if that would help stem progression of blood clotting and prevent failure. She has received two courses of chemo now. This may have also exacerbated some of her fluid retention, but I imagine that the progression of clots is the main factor which is concerning. 3. No signs of ascites. No signs of infection at this time. 4. Hemoglobin stable. She does have portal hypertensive gastropathy which is severe. RECOMMENDATIONS: 1. I would change her to PPI for ulcer prophylaxis and I would add back her spirolactone 100 mg a day. She is not receiving it presently in the hospital. We will touch base with her dry mill worker in [place] tomorrow to see if there is any much else to do. I think that there is not. 2. She is not a candidate for a PleurX catheter. This is hepatic hydrothorax and would result in prompt development of renal failure and the catheter will never be able to remove. This is not a viable palliative measure nor therapeutic measure. Job ID: [id number]
[2020-08-16] MEDS: Mometasone 200 MCG/Formoterol 5 MCG 120 PUFF INHALER INH SCH ×2 (07:56→19:28)
[2020-08-16 07:58] LABS: PTT 187.4 sec (22.9-36.1)
[2020-08-16] MEDS: traMADol HCl 50 MG TAB PO PRN (08:07)
[2020-08-16] MEDS: Spironolactone 100 MG TAB PO SCH (08:09)
[2020-08-16] MEDS: Nadolol 40 MG TAB PO SCH (08:12)
--- NOTE | 2020-08-16 11:17 | PDOC.HOSPP ---
- Subjective Encounter Date: 08/16/20 Encounter Time: 08:00 Subjective: Patient seen and examined bedside today, patient subjectively does not complain of anything, denies any shortness of breath or fever, - Objective Vital Signs & Weight: Vital Signs (12 hours) Temp Pulse Resp BP Pulse Ox 08/16/20 08:55 62 18 08/16/20 08:49 98.3 F 46 L 95/53 L 93 L 08/16/20 08:00 97.3 F L 64 95/53 L 93 L 08/16/20 07:57 96 08/16/20 07:56 63 16 96 08/16/20 03:50 60 93 L 08/16/20 00:00 65 95 Weight Weight 152 lb 12.8 oz I&O: 08/15/20 08/16/20 08/17/20 06:59 06:59 06:59 Intake Total 790 Output Total 2553 Balance -1763 Result Diagrams: 08/16/20 03:49 08/16/20 03:49 Additional Labs: Accuchecks 08/15/20 08/15/20 08/15/20 20:44 16:20 11:10 POC Glucose 152 H 122 H 114 H Radiology Reviewed by me: Yes Hospitalist ROS - Review of Systems Constitutional: reports: weakness. denies: fever, chills, sweats, malaise, other Respiratory: denies: cough, dry, shortness of breath, hemoptysis, SOB with excertion, pleuritic pain, sputum, wheezing, other Cardiovascular: denies: chest pain, palpitations, orthopnea, paroxysmal noc. dyspnea, edema, light headedness, other Gastrointestinal: denies: nausea, vomiting, abdominal pain, diarrhea, constipation, melena, hematochezia, other Genitourinary: denies: dysuria, frequency, incontinence, hematuria, retention, other Musculoskeletal: denies: neck pain, shoulder pain, arm pain, back pain, hand pain, leg pain, foot pain, other - Medication Medications: Active Medications Generic Name Dose Route Start Last Admin Trade Name Freq PRN Reason Stop Dose Admin Famotidine 20 mg 08/14/20 21:00 08/15/20 21:15 Famotidine 20 Mg Tab PO 20 mg BID JERO Administration Furosemide 40 mg 08/15/20 06:00 08/16/20 05:13 Furosemide 40 Mg/4 Ml Vial SLOW IVP 40 mg 0600,1400 JERO Administration Heparin Sodium (Porcine) 0 units 08/14/20 21:00 08/15/20 11:46 Heparin 10,000 Units/ 10 Ml Vial SLOW IVP 2,960 units ASDIR JERO Administration Protocol Heparin Sodium/Dextrose 500 mls @ 0 mls/hr 08/14/20 21:00 08/16/20 05:17 Heparin 25,000 Units/D5w IVPB 500 mls INF JERO Administration Protocol Per Protocol Mometasone Furoate/Formoterol Fumar 2 puff 08/14/20 18:30 08/16/20 07:56 Mometasone 200 Mcg/Formoterol 5 Mcg 120 Puff Inhaler INH 2 puff BID-RT JERO Administration Nadolol 20 mg 08/15/20 09:00 08/16/20 08:12 Nadolol 40 Mg Tab PO Not Given DAILY JERO Spironolactone 100 mg 08/16/20 08:00 08/16/20 08:09 Spironolactone 100 Mg Tab PO Not Given QAM-WM JERO Tramadol HCl 50 mg 08/14/20 16:34 08/16/20 08:07 Tramadol Hcl 50 Mg Tab PO 50 mg QIDPRN PRN Administration Moderate Pain (4-6) - Exam General Appearance: NAD, awake alert Eye: PERRL ENT: normocephalic atraumatic, no oropharyngeal lesions Neck: supple, symmetric, no JVD Heart: RRR, no murmur, no gallops, no rubs Respiratory: no wheezes, no rales, no ronchi Respiratory - other findings: Air entry reduced on the right side Gastrointestinal: soft, non-tender, non-distended Gastrointestinal - other findings: Extremities: no clubbing, 1+ LE edema Skin: normal turgor, no lesions Neurological: no new deficit Musculoskeletal: normal tone, normal strength Psychiatric: normal affect, normal behavior, A&O x 3 Hosp A/P (1) Hyperkalemia Code(s): E87.5 - HYPERKALEMIA Status: Acute (2) Portal vein thrombosis Code(s): I81 - PORTAL VEIN THROMBOSIS Status: Acute (3) Diabetes mellitus type II, controlled Code(s): E11.9 - TYPE 2 DIABETES MELLITUS WITHOUT COMPLICATIONS Status: Chronic (4) Hepatic carcinoma Code(s): C22.0 - LIVER CELL CARCINOMA Status: Chronic (5) Hepatic cirrhosis Code(s): K74.60 - UNSPECIFIED CIRRHOSIS OF LIVER Status: Chronic (6) Hyponatremia Code(s): E87.1 - HYPO-OSMOLALITY AND HYPONATREMIA Status: Acute (7) Anasarca Code(s): R60.1 - GENERALIZED EDEMA Status: Acute - Plan old records reviewed/req Patient is currently on heparin drip as per gastroenterology for portal vein thrombosis Continue Lasix, Aldactone, Corgard for portal hypertension Gastroenterology following and the recommendation appreciated, will monitor labs daily Because of low blood pressure patient is not able to get her medication Her long-term prognosis is poor, Palliative care consulted
[2020-08-16] MEDS: Famotidine 20 MG TAB PO SCH (12:22)
[2020-08-16] MEDS: HumaLOG 300 UNITS/3 ML VIAL SC PRN ×2 (12:23→16:20)
--- NOTE | 2020-08-16 16:03 | PRG ---
DATE OF SERVICE: 08/16/2020 SUBJECTIVE: Ms. Sage has no acute complaints. She is lying in bed and has a Cisse catheter in, states that she is not getting up and moving around because of the Cisse catheter. She has no nausea or vomiting. Still has some discomfort in her lower extremities with edema. OBJECTIVE: VITAL SIGNS: Temperature is 98.3, pulse 63, blood pressure 103/57. GENERAL: She is in no acute distress. Alert and oriented x3. LUNGS: Clear to auscultation bilaterally. HEART: Regular rate and rhythm without murmur. ABDOMEN: Soft, nontender, and nondistended. Bowel sounds are present. EXTREMITIES: 2+ pitting lower extremity edema. LABORATORY DATA: White blood cell count 7.7, hemoglobin 13.4, platelets 104. Creatinine 0.71, sodium 128, potassium 5.0, chloride 95, CO2 of 28, BUN 27, bilirubin 2.6, AST 52, ALT 37, alkaline phosphatase 121, albumin 2.5. IMPRESSION: 1. Anasarca. The abdominal and lower extremity edema seems to be the primary symptom she was having that brought her in. On discussion with the patient, she has a bag with over 20 medications in it and she is not clear on what she really should and should not be taking. She quit taking all of her medicines a couple of days before she came in except for the Invokana and codeine and furosemide which she increased herself to 40 mg twice daily. She has been receiving furosemide IV 40 mg twice daily here in the hospital and has lost 9 pounds over the last 3 days. Her spironolactone was held when she came in due to hyperkalemia, however, she was also taking potassium supplements. At this point, I think we will continue the furosemide 40 mg twice daily, which can be transitioned to oral dosing likely tomorrow and continue the spironolactone 100 mg daily and stop the potassium supplement. 2. Polypharmacy - she has been confused about which medications she is supposed to be taking as an outpatient and quit taking most of them a couple of days before admission. 3. Portal vein thrombosis with extension to the splenic vein and superior mesenteric vein. Of all the medicines in her bag, the Eliquis is not included. She is not sure when she quit taking Eliquis. She at least quit taking it a couple of days before she came in, but it might have been long before that as she states these are all her medications and Eliquis is not a part of them. 4. Cirrhosis with portal hypertension. 5. Hepatocellular carcinoma. She is scheduled to go back for chemotherapy in a week. RECOMMENDATIONS: 1. I spoke with her gas golf cart repairer in [place], Dr. Moss. He spoke with patient's oncologist. Per oncology, she can transition to eliquis for anticoagulation. 2. Physical therapy reports she could ambulate well, and is able to get to the bed-side toilet without assistance. The cisse catheter will be removed. 3. She does have ibuprofen and naproxen with her home medications. She was advised to avoid all NSAIDs and we will restart proton pump inhibitor. 4. I would anticipate she should be able to discharge home over the next couple of days when she has her medications figured out and her electrolytes are stabilized from a diuretic standpoint. She can just keep her followup with her oncologist in a week in [place] and remain on Eliquis for the blood clots. Job ID: [id number] Addendum: 08/16/20 20:07. Nursing reports patient passed a bright red bloody stool. We will stop the heparin and not start the eliquis now. Recheck the hemoglobin in an hour and in the morning. The thrombus might be tumor thrombus rather than blood clot which might not respond all that well to anticoagulation anyway (which is why she was receiving radiation for it and has been apparently off the eliquis. With the extension now to the SMV, there is risk for bowel infarction, so plan has been to restart anticoagulation, but now this is complicated by bleed. If she has persistent bleeding or melena or hemodynamic changes, we will start octreotide in light of the known varices/cirrhosis. [facility]
[2020-08-16] MEDS ORDERED: Heparin 10,000 UNITS/ 10 ML VIAL SLOW IVP SCH (16:15)
[2020-08-16] MEDS ORDERED: Heparin 25,000 units/D5W 500 ML IVPB SCH (16:15)
[2020-08-16 16:57] LABS: Hemoglobin 15.1 g/dL (12.0-16.0); Platelet Count 136 thou/uL (130-400)
[2020-08-16] MEDS ORDERED: Apixaban 5 MG TAB PO SCH (21:00)
[2020-08-16 21:10] LABS: Hemoglobin 13.9 g/dL (12.0-16.0)
[2020-08-17] MEDS: traMADol HCl 50 MG TAB PO PRN (01:44)
[2020-08-17] MEDS: Guaifenesin DM 100-10/5 ML UDCUP PO PRN ×3 (01:45→13:09)
[2020-08-17] MEDS ORDERED: Furosemide 40 MG/4 ML VIAL SLOW IVP SCH (02:00)
[2020-08-17] MEDS: Cepastat Lozenges 1 LOZ PO PRN ×2 (03:18→06:09)
[2020-08-17 04:09] LABS: Hemoglobin 14.3 g/dL (12.0-16.0)
[2020-08-17 04:27] LABS: Anion Gap 12 mmol/L (10-20); BUN (Urea Nitrogen) 24 mg/dL (9.8-20.1); Calc. Creatinine Clearance 71 mL/min (70-130); Calcium 8.4 mg/dL (7.8-10.44); Carbon Dioxide 29 mmol/L (23-31); Chloride 94 mmol/L (98-107); Glucose 146 mg/dL (80-115); Potassium 4.3 mmol/L (3.5-5.1); Sodium 131 mmol/L (136-145)
[2020-08-17] MEDS: Furosemide 40 MG/4 ML VIAL SLOW IVP SCH ×2 (06:09→13:09)
[2020-08-17] MEDS: Mometasone 200 MCG/Formoterol 5 MCG 120 PUFF INHALER INH SCH ×2 (07:41→19:07)
[2020-08-17] MEDS: Spironolactone 100 MG TAB PO SCH (08:32)
[2020-08-17] MEDS: Nadolol 40 MG TAB PO SCH (08:33)
[2020-08-17 08:38] LABS: Hemoglobin 14.9 g/dL (12.0-16.0)
--- NOTE | 2020-08-17 10:57 | PDOC.HOSPP ---
- Subjective Encounter Date: 08/17/20 Encounter Time: 10:00 Subjective: Patient seen and examined bedside today, patient had earlier diarrhea, she is feeling physically weak, no overnight event, no fever, no hematochezia, her H&H remained stable, - Objective Vital Signs & Weight: Vital Signs (12 hours) Temp Pulse Resp BP Pulse Ox 08/17/20 07:42 91 L 08/17/20 07:41 68 16 91 L 08/17/20 07:03 99.2 F 67 16 113/61 94 L 08/17/20 06:07 73 124/64 08/17/20 03:10 65 18 107/60 08/17/20 02:50 67 16 92 L Weight Weight 150 lb 2 oz I&O: 08/16/20 08/17/20 08/18/20 06:59 06:59 06:59 Intake Total 790 801 470 Output Total 2553 1850 Balance -1763 -1049 470 Result Diagrams: 08/17/20 08:30 08/17/20 03:53 Additional Labs: Accuchecks 08/16/20 08/16/20 08/16/20 20:39 15:54 11:50 POC Glucose 156 H 185 H 155 H Hospitalist ROS - Review of Systems Constitutional: reports: weakness ENT: denies: ear pain, ear discharge, nose pain, nose discharge, nose congestion, mouth pain, mouth swelling, throat pain, throat swelling, other Respiratory: denies: cough, dry, shortness of breath, hemoptysis, SOB with excertion, pleuritic pain, sputum, wheezing, other Cardiovascular: denies: chest pain, palpitations, orthopnea, paroxysmal noc. dyspnea, edema, light headedness, other Gastrointestinal: reports: diarrhea. denies: nausea, vomiting, abdominal pain, constipation, melena, hematochezia, other Genitourinary: denies: dysuria, frequency, incontinence, hematuria, retention, other Musculoskeletal: denies: neck pain, shoulder pain, arm pain, back pain, hand pain, leg pain, foot pain, other - Medication Medications: Active Medications Generic Name Dose Route Start Last Admin Trade Name Freq PRN Reason Stop Dose Admin Albuterol/Ipratropium 3 ml 08/17/20 01:59 08/17/20 02:50 Ipratropium/Albuterol Sulfate 3 Ml Neb NEB 3 ml [id number] PRN Administration SOB &/or Wheezing Furosemide 40 mg 08/15/20 06:00 08/17/20 06:09 Furosemide 40 Mg/4 Ml Vial SLOW IVP 40 mg 0600,1400 JERO Administration Guaifenesin/Dextromethorphan 15 ml 08/14/20 16:34 08/17/20 08:34 Guaifenesin Dm 100-10/5 Ml Udcup PO 15 ml Q4H PRN Administration Cough Insulin Human Lispro 0 units 08/14/20 16:34 08/16/20 16:20 Humalog 300 Units/3 Ml Vial SC 2 unit .MODERATE SLIDING SC PRN Administration Moderate Correctional Scale Mometasone Furoate/Formoterol Fumar 2 puff 08/14/20 18:30 08/17/20 07:41 Mometasone 200 Mcg/Formoterol 5 Mcg 120 Puff Inhaler INH 2 puff BID-RT JERO Administration Nadolol 20 mg 08/15/20 09:00 08/17/20 08:33 Nadolol 40 Mg Tab PO 20 mg DAILY JERO Administration Ondansetron HCl 4 mg 08/14/20 16:34 08/17/20 02:44 Ondansetron Pf 4 Mg/2 Ml Vial IVP 4 mg Q6H PRN Administration Nausea/Vomiting Pantoprazole Sodium 40 mg 08/17/20 09:00 08/17/20 08:34 Pantoprazole 40 Mg Tab PO 40 mg DAILY JERO Administration Spironolactone 100 mg 08/16/20 08:00 08/17/20 08:32 Spironolactone 100 Mg Tab PO 100 mg QAM-WM JERO Administration Throat Lozenges 1 kaylah 08/17/20 01:58 08/17/20 06:09 Cepastat Lozenges 1 Kaylah PO 1 kaylah Q2H PRN Administration Sore Throat Tramadol HCl 50 mg 08/14/20 16:34 08/17/20 01:44 Tramadol Hcl 50 Mg Tab PO 50 mg QIDPRN PRN Administration Moderate Pain (4-6) - Exam General Appearance: NAD, awake alert Eye: PERRL, anicteric sclera ENT: normocephalic atraumatic, no oropharyngeal lesions Neck: symmetric, no JVD Heart: RRR, no murmur, no gallops, no rubs Respiratory: no wheezes, no rales, no ronchi Gastrointestinal: soft, non-distended, normal bowel sounds Extremities: no cyanosis, no clubbing, no edema Skin: normal turgor, no lesions Neurological: no focal deficits Musculoskeletal: normal tone, normal strength Hosp A/P (1) Portal vein thrombosis Code(s): I81 - PORTAL VEIN THROMBOSIS Status: Acute (2) Hyperkalemia Code(s): E87.5 - HYPERKALEMIA Status: Resolved (3) Diabetes mellitus type II, controlled Code(s): E11.9 - TYPE 2 DIABETES MELLITUS WITHOUT COMPLICATIONS Status: Chronic (4) Hepatic carcinoma Code(s): C22.0 - LIVER CELL CARCINOMA Status: Chronic (5) Hepatic cirrhosis Code(s): K74.60 - UNSPECIFIED CIRRHOSIS OF LIVER Status: Chronic (6) Hyponatremia Code(s): E87.1 - HYPO-OSMOLALITY AND HYPONATREMIA Status: Acute (7) Anasarca Code(s): R60.1 - GENERALIZED EDEMA Status: Acute - Plan old records reviewed/req Patient had yesterday hematochezia but her H&H remained stable, will consider restarting Eliquis after GI evaluation Medication reviewed and continue with symptomatic and supportive care Per patient she does not have any way to go home today and she is not feeling good today because of diarrhea and weakness, will reassess her tomorrow Patient will follow up with her developer trading systems and oncologist after discharge. Gastroenterology recommendation appreciated.
--- NOTE | 2020-08-17 11:16 | PDOC.FMACP ---
Advance Care Planning - Problem (1) Palliative care encounter Status: Acute Code(s): Z51.5 - ENCOUNTER FOR PALLIATIVE CARE (2) Anasarca Status: Acute Code(s): R60.1 - GENERALIZED EDEMA (3) Hyponatremia Status: Acute Code(s): E87.1 - HYPO-OSMOLALITY AND HYPONATREMIA (4) Portal vein thrombosis Status: Acute Code(s): I81 - PORTAL VEIN THROMBOSIS (5) Diabetes mellitus type II, controlled Status: Chronic Code(s): E11.9 - TYPE 2 DIABETES MELLITUS WITHOUT COMPLICATIONS (6) Hepatic carcinoma Status: Chronic Code(s): C22.0 - LIVER CELL CARCINOMA (7) Hepatic cirrhosis Status: Chronic Code(s): K74.60 - UNSPECIFIED CIRRHOSIS OF LIVER - Note Participants: patient, palliative care Summary: Palliative care introduced Advanced Care Planning. The diagnosis, prognosis and goals of care were discussed. Appropriate forms and documentation to accomplish the goals of care were discussed. All questions were answered. Stated she desires to be with full resuscitation measures. Completed MPOA and Directive to physician. Original given to patient and copies placed on chart. In addressing Goal of care the patient confirmed that she has no assistance in the home setting. Discussed she desires to follow up with her oncologist in [place] at discharge for consideration of continuation of treatment. Palliative Care will follow at a distance, and if needed will revisit Goal of care as well as assist with complex decision making. Time Spent (mins): 40
[2020-08-17] MEDS: HumaLOG 300 UNITS/3 ML VIAL SC PRN ×2 (11:27→16:40)
[2020-08-17 15:14] LABS: Hemoglobin 13.4 g/dL (12.0-16.0)
--- NOTE | 2020-08-17 18:00 | PRG ---
DATE OF SERVICE: 08/17/2020 SUBJECTIVE: Ms. Sage had a small bloody stool last night and then another one early this morning, which was described as red blood mixed with brown stool. She had another stool that was nonbloody. She has had some cramping left lower quadrant to diffuse abdominal pain associated with that. No nausea or vomiting. She is tolerating a solid diet. OBJECTIVE: VITAL SIGNS: Temperature 97.9, pulse 60, blood pressure 100/59. GENERAL: She is in no acute distress. Alert and oriented x3. LUNGS: Clear to auscultation bilaterally. HEART: Regular rate and rhythm without murmur. ABDOMEN: Has mild tenderness in the upper abdomen without guarding. Bowel sounds are present. EXTREMITIES: No lower extremity edema. LABORATORY DATA: Hemoglobin is 13.4, creatinine 0.81. Bilirubin 2.3, AST 52, ALT 37, alkaline phosphatase 121. IMPRESSION: 1. Cirrhosis of the liver. 2. Hepatocellular carcinoma. 3. Portal vein thrombosis with new extension to the SMV. This is primarily tumor thrombus and she has been treated with radiation for previously. Given the extension of the blood clot to the SMV, she has been started on anticoagulation initially with heparin. The plan was to change back to Eliquis. I did speak with her advertising rep, Dr. Moss in [place], who also spoke with her oncologist who felt that it would be reasonable to switch to the longer-term anticoagulation with the expected chemotherapy. This is now complicated with the rectal bleeding that occurred yesterday. 4. Hematochezia. This is likely hemorrhoidal type bleeding. She has brown stool mixed with red stool. Her hemoglobin is stable. Her last bowel movement was early this morning before day shift came on. RECOMMENDATIONS: 1. If she has no further overt GI bleeding and her hemoglobin remained stable, then we can start her back on heparin and if she does okay with that for a couple of days, then we can then transition to Eliquis. 2. The plan is for her to follow up with her oncologist in [place] next week as scheduled. Job ID: [id number]
[2020-08-18] MEDS: Guaifenesin DM 100-10/5 ML UDCUP PO PRN ×2 (03:03→19:27)
[2020-08-18 05:13] LABS: Anion Gap 11 mmol/L (10-20); BUN (Urea Nitrogen) 21 mg/dL (9.8-20.1); Calc. Creatinine Clearance 80 mL/min (70-130); Carbon Dioxide 25 mmol/L (23-31); Chloride 97 mmol/L (98-107); Glucose 190 mg/dL (80-115); Potassium 4.3 mmol/L (3.5-5.1); Sodium 129 mmol/L (136-145)
[2020-08-18] MEDS: Furosemide 40 MG/4 ML VIAL SLOW IVP SCH ×2 (05:47→13:17)
[2020-08-18] MEDS: HumaLOG 300 UNITS/3 ML VIAL SC PRN ×2 (05:47→13:16)
--- NOTE | 2020-08-18 05:49 | PRG ---
DATE OF SERVICE: 08/16/2020 ADDENDUM: I spoke with the patient's automotive painter helper, Dr. Riky Moss down in [place]. The patient is on a new chemotherapy regimen, which could potentially increase bleeding risk with Eliquis. It is uncertain whether the thrombus, which is extended now to the mesenteric vein is truly thrombus versus tumor and whether or not anticoagulation will truly help or not. She does have known varices, but they are only grade 1 to 2 previously. For now, we will keep the heparin going and Dr. Moss will speak with the patient's oncologist in [place]. Options include changing her chemotherapy regimen, so that she could start back on Eliquis or other blood thinner versus alternative anticoagulation with her current chemotherapy. Pending this decision, we will continue heparin and await discussion between her automotive painter helper and oncologist in [place]. In the meantime, she has been restarted on her proton pump inhibitor. We will follow the trend of her electrolytes as we are adjusting her diuretics. We will need to continue to follow her weight daily. Job ID: [id number]
[2020-08-18] MEDS: traMADol HCl 50 MG TAB PO PRN (05:50)
[2020-08-18 06:17] LABS: Band 3 % (5-11); Eosinophils 5 % (0-10); Hemoglobin 13.4 g/dL (12.0-16.0); Lymphocytes 5 % (21-51); MDiff Complete? YES; Mean Corpuscular HGB CONC 31.4 g/dL (32.0-36.0); Mean Corpuscular Hemoglobin 30.4 pg (27.0-31.0); Mean Platelet Volume 7.2 fL (7.4-10.4); Monocytes 18 % (0-10); Neutrophil 67 % (42-75); Platelet Count 102 thou/uL (130-400); Platelet Morphology Comment Appears Decreased; RBC Distribution Width 14.3 % (11.5-14.5); Red Blood Cell (RBC) Count 4.41 mill/uL (4.20-5.40); White Blood Cell (WBC) Count 7.1 thou/uL (4.8-10.8)
[2020-08-18] MEDS: Mometasone 200 MCG/Formoterol 5 MCG 120 PUFF INHALER INH SCH ×2 (07:30→19:30)
[2020-08-18] MEDS: Spironolactone 100 MG TAB PO SCH (08:22)
[2020-08-18] MEDS: Nadolol 40 MG TAB PO SCH (08:22)
--- NOTE | 2020-08-18 09:31 | PDOC.HOSPP ---
- Subjective Encounter Date: 08/18/20 Encounter Time: 11:00 Subjective: Ms. Montero was in bed at the time of the visit. Reports decreased shortness of breath - able to walk down the [place] now before getting SOB as opposed to the bathroom yesterday. Edema stable since yesterday. No blood in her stool today and last time she had any was early yesterday. Has metastatic liver cancer and is on round 3 of chemo with the next treatment on Aug 23. Currently on heparin drip. No diarrhea this morning and feels stronger than she did yesterday. - Objective Vital Signs & Weight: Vital Signs (12 hours) Temp Pulse Resp BP Pulse Ox 08/18/20 08:00 99.4 F 60 18 117/56 L 96 08/18/20 07:58 90 L 08/18/20 07:30 61 16 90 L 08/18/20 03:28 65 16 93 L Weight Weight 144 lb 8 oz I&O: 08/17/20 08/18/20 08/19/20 06:59 06:59 06:59 Intake Total 801 1210 Output Total 1850 Balance -1049 1210 Result Diagrams: 08/18/20 04:20 08/18/20 04:20 Additional Labs: Accuchecks 08/17/20 11:06 POC Glucose 250 H Hospitalist ROS - Review of Systems Respiratory: reports: shortness of breath (reduced since yesterday). denies: cough, dry Cardiovascular: reports: orthopnea, edema (stable since yesterday). denies: chest pain, palpitations Gastrointestinal: reports: melena. denies: nausea, vomiting, abdominal pain, diarrhea, constipation, hematochezia - Medication Medications: Active Medications Generic Name Dose Route Start Last Admin Trade Name Freq PRN Reason Stop Dose Admin Albuterol/Ipratropium 3 ml 08/17/20 01:59 08/18/20 03:28 Ipratropium/Albuterol Sulfate 3 Ml Neb NEB 3 ml [id number] PRN Administration SOB &/or Wheezing Furosemide 40 mg 08/15/20 06:00 08/18/20 05:47 Furosemide 40 Mg/4 Ml Vial SLOW IVP 40 mg 0600,1400 JERO Administration Guaifenesin/Dextromethorphan 15 ml 08/14/20 16:34 12/05/20 03:03 Guaifenesin Dm 100-10/5 Ml Udcup PO 15 ml Q4H PRN Administration Cough Insulin Human Lispro 0 units 08/14/20 16:34 08/18/20 05:47 Humalog 300 Units/3 Ml Vial SC 2 unit .MODERATE SLIDING SC PRN Administration Moderate Correctional Scale Mometasone Furoate/Formoterol Fumar 2 puff 08/14/20 18:30 08/18/20 07:30 Mometasone 200 Mcg/Formoterol 5 Mcg 120 Puff Inhaler INH 2 puff BID-RT JERO Administration Nadolol 20 mg 08/15/20 09:00 08/18/20 08:22 Nadolol 40 Mg Tab PO 20 mg DAILY JERO Administration Ondansetron HCl 4 mg 08/14/20 16:34 08/17/20 02:44 Ondansetron Pf 4 Mg/2 Ml Vial IVP 4 mg Q6H PRN Administration Nausea/Vomiting Pantoprazole Sodium 40 mg 08/17/20 09:00 08/18/20 08:22 Pantoprazole 40 Mg Tab PO 40 mg DAILY JERO Administration Spironolactone 100 mg 08/16/20 08:00 08/18/20 08:22 Spironolactone 100 Mg Tab PO 100 mg QAM-WM JERO Administration Throat Lozenges 1 kaylah 08/17/20 01:58 08/17/20 06:09 Cepastat Lozenges 1 Kaylah PO 1 kaylah Q2H PRN Administration Sore Throat Tramadol HCl 50 mg 08/14/20 16:34 08/18/20 05:50 Tramadol Hcl 50 Mg Tab PO 50 mg QIDPRN PRN Administration Moderate Pain (4-6) - Exam General Appearance: NAD Eye: PERRL ENT: normocephalic atraumatic Neck: supple Heart: RRR, no murmur, no gallops Respiratory: CTAB, wheezes (with deep breath) Gastrointestinal: soft, non-tender, non-distended, normal bowel sounds Gastrointestinal - other findings: No fluid wave noted no hepatosplenomegaly Extremities: no cyanosis, 2+ LE edema Musculoskeletal: generalized weakness Psychiatric: A&O x 3 Hosp A/P - Plan Portal vein thrombosis Anasarca - Continue heparin drip till patient reaches a decision with her oncologist in [place] regarding chemo regimen going forward the choice of anticoagulant. --MRI performed in March 2020 shows extension of thrombus into the superior mesenteric vein as well as splenic vein--and there is a concern whether this can lead to increased risk for small bowel infarction so will continue with a heparin drip until we finalized with her geophysics teacher and oncologist on the choice of oral anticoagulant. -Let us talk to the them on Thursday. Dr. Moss geophysics teacher and oncologist?, Both in [place]. DM2, controlled - using Humalog to control Metastatic hepatic carcinoma History of hepatitis C - associated hepatic cirrhosis - on round 3 of chemotherapy in [place], with next treatment of Aug 23 -She had a paracentesis roughly 5 years ago. Her abdominal exam does not look significant enough to consider further procedures Hyponatremia -Secondary to cirrhosis - secondary to diuretic usage - will follow electrolyte trends Lower extremity edema - stable for the past day at 2+ edema - continue diuresing with furosemide - weight change - down nearly 2.5 kg since yesterday Hematochezia - stable H&H - no new episodes -Keep a close eye on any blood in the urine or stool, as she is on heparin drip
[2020-08-18] MEDS: Cepastat Lozenges 1 LOZ PO PRN (10:42)
[2020-08-18] MEDS ORDERED: Heparin 25,000 units/D5W 500 ML IVPB SCH (13:45)
--- NOTE | 2020-08-18 14:16 | PRG ---
DATE OF SERVICE: 08/18/2020 SUBJECTIVE: Ms. 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 Tolerating a solid diet well. OBJECTIVE: VITAL SIGNS: Temperature 99.4, pulse 60, blood pressure 117/56. GENERAL: No acute distress. Alert and oriented x3. LUNGS: Clear to auscultation bilaterally. HEART: Regular rate and rhythm without murmur. ABDOMEN: Soft, nontender, and nondistended. Bowel sounds present. EXTREMITIES: No lower extremity edema. LABORATORY DATA: Hemoglobin is 13.4. Creatinine 0.72. IMPRESSION: 1. Portal vein thrombosis. She has had no further overt bleeding since yesterday morning. Her hemoglobin remained stable. We will restart her heparin today. This is mostly tumor thrombus likely and therefore she received radiation for that and the anticoagulation might or might not actually help given the extension of the thrombus into the superior mesenteric vein. Then, we will treat with anticoagulation if we can. We will give heparin for couple days and if she can tolerate this from a bleeding standpoint, then she can restart Eliquis after that. 2. Cirrhosis of the liver. 3. Hepatocellular carcinoma. 4. Hematochezia, which is more consistent with hemorrhoidal-type bleeding. We will restart anticoagulation. RECOMMENDATIONS: 1. Heparin drip has been reordered. 2. Continue regular diet. 3. If she tolerates the heparin well for couple days, we can likely transition to Eliquis and allow her to discharge home to follow up with her oncologist in [place] after that. Job ID: [id number]
[2020-08-18 14:34] LABS: Hemoglobin 14.4 g/dL (12.0-16.0); Platelet Count 126 thou/uL (130-400)
[2020-08-18] MEDS: Heparin 10,000 UNITS/ 10 ML VIAL SLOW IVP SCH (15:21)
[2020-08-18 22:10] LABS: PTT Greater than 250.0 sec (22.9-36.1)
[2020-08-19 01:21] LABS: PTT 221.8 sec (22.9-36.1)
[2020-08-19 04:32] LABS: Anion Gap 12 mmol/L (10-20); BUN (Urea Nitrogen) 20 mg/dL (9.8-20.1); Calc. Creatinine Clearance 73 mL/min (70-130); Carbon Dioxide 30 mmol/L (23-31); Chloride 94 mmol/L (98-107); Glucose 195 mg/dL (80-115); Sodium 132 mmol/L (136-145)
[2020-08-19 04:46] LABS: Band 1 % (5-11); Eosinophils 4 % (0-10); Hemoglobin 13.3 g/dL (12.0-16.0); Lymphocytes 15 % (21-51); MDiff Complete? YES; Mean Corpuscular HGB CONC 32.1 g/dL (32.0-36.0); Mean Corpuscular Hemoglobin 30.9 pg (27.0-31.0); Mean Corpuscular Volume 96.1 fL (78.0-98.0); Monocytes 14 % (0-10); Neutrophil 66 % (42-75); Platelet Count 104 thou/uL (130-400); Platelet Morphology Comment Appears Decreased; Red Blood Cell (RBC) Count 4.31 mill/uL (4.20-5.40); White Blood Cell (WBC) Count 7.6 thou/uL (4.8-10.8)
[2020-08-19] MEDS: Furosemide 40 MG/4 ML VIAL SLOW IVP SCH ×2 (05:13→14:23)
[2020-08-19] MEDS: Heparin 10,000 UNITS/ 10 ML VIAL SLOW IVP SCH (05:14)
[2020-08-19] MEDS: Cepastat Lozenges 1 LOZ PO PRN (05:23)
[2020-08-19] MEDS: Mometasone 200 MCG/Formoterol 5 MCG 120 PUFF INHALER INH SCH ×2 (07:25→18:10)
[2020-08-19] MEDS: Nadolol 40 MG TAB PO SCH (08:18)
[2020-08-19] MEDS: Spironolactone 100 MG TAB PO SCH (08:18)
[2020-08-19 12:04] LABS: PTT Greater than 250.0 sec (22.9-36.1)
--- NOTE | 2020-08-19 13:21 | PDOC.HOSPP ---
- Subjective Encounter Date: 08/19/20 Encounter Time: 12:10 Subjective: She appears well. Her lower extremity edema seems to be improving she denies any acute abdominal pain this morning. Tolerating her diet. She lives alone but her son lives nearby. - Objective Vital Signs & Weight: Vital Signs (12 hours) Temp Pulse Resp BP Pulse Ox 08/19/20 07:46 91 L 08/19/20 07:25 68 20 91 L 08/19/20 07:15 98.8 F 54 L 18 122/56 L 93 L Weight Weight 145 lb 2 oz I&O: 08/18/20 08/19/20 08/20/20 06:59 06:59 06:59 Intake Total 1210 340 Balance 1210 340 Result Diagrams: 08/19/20 03:49 08/19/20 03:49 Additional Labs: Accuchecks 08/19/20 08/18/20 08/18/20 11:14 19:24 15:57 POC Glucose 174 H 166 H 106 H Hospitalist ROS - Medication Medications: Active Medications Generic Name Dose Route Start Last Admin Trade Name Freq PRN Reason Stop Dose Admin Albuterol/Ipratropium 3 ml 08/17/20 01:59 08/18/20 03:28 Ipratropium/Albuterol Sulfate 3 Ml Neb NEB 3 ml [id number] PRN Administration SOB &/or Wheezing Furosemide 40 mg 08/15/20 06:00 08/19/20 05:13 Furosemide 40 Mg/4 Ml Vial SLOW IVP 40 mg 0600,1400 JERO Administration Guaifenesin/Dextromethorphan 15 ml 08/14/20 16:34 08/18/20 19:27 Guaifenesin Dm 100-10/5 Ml Udcup PO 15 ml Q4H PRN Administration Cough Heparin Sodium (Porcine) 0 units 08/18/20 13:45 08/19/20 05:14 Heparin 10,000 Units/ 10 Ml Vial SLOW IVP 2,620 unit ASDIR JERO Administration Protocol Heparin Sodium/Dextrose 500 mls @ 0 mls/hr 08/18/20 13:45 08/18/20 15:23 Heparin 25,000 Units/D5w IVPB 500 mls INF JERO Administration Protocol Per Protocol Insulin Human Lispro 0 units 08/14/20 16:34 08/18/20 13:16 Humalog 300 Units/3 Ml Vial SC 6 unit .MODERATE SLIDING SC PRN Administration Moderate Correctional Scale Mometasone Furoate/Formoterol Fumar 2 puff 08/14/20 18:30 08/19/20 07:25 Mometasone 200 Mcg/Formoterol 5 Mcg 120 Puff Inhaler INH 2 puff BID-RT JERO Administration Nadolol 20 mg 08/15/20 09:00 08/19/20 08:18 Nadolol 40 Mg Tab PO 20 mg DAILY JERO Administration Ondansetron HCl 4 mg 08/14/20 16:34 08/17/20 02:44 Ondansetron Pf 4 Mg/2 Ml Vial IVP 4 mg Q6H PRN Administration Nausea/Vomiting Pantoprazole Sodium 40 mg 08/17/20 09:00 08/19/20 08:18 Pantoprazole 40 Mg Tab PO 40 mg DAILY JERO Administration Sodium Chloride 10 ml 08/18/20 21:00 08/19/20 08:24 Flush - Normal Saline 10 Ml Syringe IVF Not Given Q12HR JERO Spironolactone 100 mg 08/16/20 08:00 08/19/20 08:18 Spironolactone 100 Mg Tab PO 100 mg QAM-WM JERO Administration Throat Lozenges 1 kaylah 08/17/20 01:58 08/19/20 05:23 Cepastat Lozenges 1 Kaylah PO 1 kaylah Q2H PRN Administration Sore Throat Tramadol HCl 50 mg 08/14/20 16:34 08/18/20 05:50 Tramadol Hcl 50 Mg Tab PO 50 mg QIDPRN PRN Administration Moderate Pain (4-6) - Exam General Appearance: NAD, awake alert Eye: PERRL ENT: normocephalic atraumatic Neck: supple Heart: RRR Respiratory: CTAB, normal chest expansion Gastrointestinal: soft, normal bowel sounds Neurological: cranial nerve grossly intact, no focal deficits Psychiatric: A&O x 3 Hosp A/P - Plan Portal vein thrombosis Anasarca - Continue heparin drip till patient reaches a decision with her oncologist in [place] regarding chemo regimen going forward the choice of anticoagulant. --MRI performed in March 2020 shows extension of thrombus into the superior mesenteric vein as well as splenic vein--and there is a concern whether this can lead to increased risk for small bowel infarction so will continue with a heparin drip until we finalized with her deck lid fitter and oncologist on the choice of oral anticoagulant. -Let us talk to the them on Thursday. Dr. Moss deck lid fitter and oncologist?, Both in [place]. DM2, controlled - using Humalog to control Metastatic hepatic carcinoma History of hepatitis C - associated hepatic cirrhosis - on round 3 of chemotherapy in [place], with next treatment of Aug 23 -She had a paracentesis roughly 5 years ago. Her abdominal exam does not look significant enough to consider further procedures Hyponatremia -Secondary to cirrhosis - secondary to diuretic usage - will follow electrolyte trends Lower extremity edema - stable for the past day at 2+ edema - continue diuresing with furosemide - weight change - down nearly 2.5 kg since yesterday Hematochezia - stable H&H - no new episodes -Keep a close eye on any blood in the urine or stool, as she is on heparin drip------ It appears per GI we can transition her to Eliquis likely tomorrow and she can follow-up with her oncologist in [place]. She lives alone but her son lives nearby.
[2020-08-19 14:13] LABS: PTT Greater than 250.0 sec (22.9-36.1)
[2020-08-19 15:40] LABS: PTT Greater than 250.0 sec (22.9-36.1)
--- NOTE | 2020-08-19 16:52 | PRG ---
DATE OF SERVICE: 08/19/2020 SUBJECTIVE: Ms. Sage is tolerating a solid diet. She has no acute complaints today. No significant abdominal pain. She has had no blood in the stool and did have a brown bowel movement today. OBJECTIVE: VITAL SIGNS: Temperature is 98.8, pulse 68, blood pressure 122/56. GENERAL: She is in no acute distress. Alert and oriented x3. LUNGS: Clear to auscultation bilaterally. HEART: Regular rate and rhythm without murmur. ABDOMEN: Soft, nontender, and nondistended. Bowel sounds are present. EXTREMITIES: No lower extremity edema. IMPRESSION: 1. Hepatocellular carcinoma. 2. Cirrhosis. 3. Portal vein thrombosis, status post radiation and currently on heparin due to extension of the clot to the superior mesenteric vein. 4. Hematochezia, consistent with hemorrhoidal type bleeding that has resolved and she only had a small amount of bleeding with stable hemoglobin. We can transition from the heparin to Eliquis now. RECOMMENDATIONS: 1. Stop heparin and start Eliquis tomorrow morning. 2. Anticipate discharge home tomorrow with followup in [place] with her oncologist. Job ID: [id number]
[2020-08-19] MEDS: HumaLOG 300 UNITS/3 ML VIAL SC PRN (21:32)
[2020-08-20 00:24] LABS: PTT Greater than 250.0 sec (22.9-36.1)
[2020-08-20] MEDS: Guaifenesin DM 100-10/5 ML UDCUP PO PRN (03:30)
[2020-08-20 03:52] LABS: Anion Gap 14 mmol/L (10-20); BUN (Urea Nitrogen) 19 mg/dL (9.8-20.1); Calc. Creatinine Clearance 80 mL/min (70-130); Calcium 8.2 mg/dL (7.8-10.44); Carbon Dioxide 27 mmol/L (23-31); Chloride 94 mmol/L (98-107); Glucose 145 mg/dL (80-115); Potassium 3.8 mmol/L (3.5-5.1); Sodium 131 mmol/L (136-145)
[2020-08-20 04:52] LABS: PTT 139.9 sec (22.9-36.1)
[2020-08-20] MEDS: Furosemide 40 MG/4 ML VIAL SLOW IVP SCH ×2 (05:20→14:07)
[2020-08-20 05:58] LABS: Hemoglobin 14.6 g/dL (12.0-16.0); Mean Corpuscular HGB CONC 32.9 g/dL (32.0-36.0); Mean Corpuscular Hemoglobin 31.7 pg (27.0-31.0); Mean Corpuscular Volume 96.2 fL (78.0-98.0); Mean Platelet Volume 7.3 fL (7.4-10.4); Platelet Count 108 thou/uL (130-400); White Blood Cell (WBC) Count 8.2 thou/uL (4.8-10.8)
[2020-08-20 06:05] LABS: Band 7 % (5-11); Eosinophils 3 % (0-10); Lymphocytes 7 % (21-51); MDiff Complete? YES; Monocytes 11 % (0-10); Neutrophil 72 % (42-75); Platelet Morphology Comment Appears Decreased
[2020-08-20] MEDS: Mometasone 200 MCG/Formoterol 5 MCG 120 PUFF INHALER INH SCH ×2 (07:08→18:10)
[2020-08-20] MEDS: Spironolactone 100 MG TAB PO SCH (09:15)
[2020-08-20] MEDS: Nadolol 40 MG TAB PO SCH (09:15)
--- NOTE | 2020-08-20 13:40 | PDOC.HOSPP ---
- Subjective Encounter Date: 08/20/20 Subjective: Seen and examined this morning at bedside. Good spirit without any overnight events. Denies any abdominal pain, nausea or vomiting. Initially planned for possible Discharge today 08-20-20 however patient is unable to obtain transportation. She has been transitioned to oral anticoagulation. She will have follow up with her oncologist next (4 days from today). Anticipate DC in 24 hrs if she remains stable. - Objective Vital Signs & Weight: Vital Signs (12 hours) Temp Pulse Resp BP Pulse Ox 08/20/20 08:00 99.1 F 62 18 125/60 94 L Weight Weight 2.321 oz I&O: 08/19/20 08/20/20 08/21/20 06:59 06:59 06:59 Intake Total 340 1060 Balance 340 1060 Result Diagrams: 08/20/20 03:05 08/20/20 03:05 Additional Labs: Accuchecks 08/20/20 08/19/20 08/19/20 11:09 21:16 16:30 POC Glucose 193 H 289 H 156 H 08/17/20 08/17/20 21:01 16:22 POC Glucose 150 H 199 H Radiology Reviewed by me: No EKG Reviewed by me: No Hospitalist ROS - Review of Systems Constitutional: denies: fever, chills, sweats, weakness, malaise, other Respiratory: reports: shortness of breath (Very mild shortness of breath on exertion at baseline). denies: cough, hemoptysis, pleuritic pain, sputum, wheez ing Cardiovascular: denies: chest pain, palpitations, orthopnea, paroxysmal noc. dyspnea, edema, light headedness, other Gastrointestinal: denies: nausea, vomiting, abdominal pain, diarrhea, constipation, melena, hematochezia, other Genitourinary: denies: dysuria, frequency, incontinence, hematuria, retention, other - Medication Medications: Active Medications Generic Name Dose Route Start Last Admin Trade Name Freq PRN Reason Stop Dose Admin Albuterol/Ipratropium 3 ml 08/17/20 01:59 08/18/20 03:28 Ipratropium/Albuterol Sulfate 3 Ml Neb NEB 3 ml [id number] PRN Administration SOB &/or Wheezing Furosemide 40 mg 08/15/20 06:00 08/20/20 05:20 Furosemide 40 Mg/4 Ml Vial SLOW IVP 40 mg 0600,1400 JERO Administration Guaifenesin/Dextromethorphan 15 ml 08/14/20 16:34 08/20/20 03:30 Guaifenesin Dm 100-10/5 Ml Udcup PO 15 ml Q4H PRN Administration Cough Insulin Human Lispro 0 units 08/14/20 16:34 08/18/20 13:16 Humalog 300 Units/3 Ml Vial SC 6 unit .MODERATE SLIDING SC PRN Administration Moderate Correctional Scale Insulin Human Lispro 0 units 08/14/20 16:34 08/19/20 21:32 Humalog 300 Units/3 Ml Vial SC 3 unit .BEDTIME SLIDING SC PRN Administration Bedtime Correctional Scale Mometasone Furoate/Formoterol Fumar 2 puff 08/14/20 18:30 08/20/20 07:08 Mometasone 200 Mcg/Formoterol 5 Mcg 120 Puff Inhaler INH 2 puff BID-RT JERO Administration Nadolol 20 mg 08/15/20 09:00 08/20/20 09:15 Nadolol 40 Mg Tab PO 20 mg DAILY JERO Administration Ondansetron HCl 4 mg 08/14/20 16:34 08/17/20 02:44 Ondansetron Pf 4 Mg/2 Ml Vial IVP 4 mg Q6H PRN Administration Nausea/Vomiting Pantoprazole Sodium 40 mg 08/17/20 09:00 08/20/20 09:14 Pantoprazole 40 Mg Tab PO 40 mg DAILY JERO Administration Sodium Chloride 10 ml 08/18/20 21:00 08/20/20 09:15 Flush - Normal Saline 10 Ml Syringe IVF 10 ml Q12HR JERO Administration Spironolactone 100 mg 08/16/20 08:00 08/20/20 09:15 Spironolactone 100 Mg Tab PO 100 mg QAM-WM JERO Administration Throat Lozenges 1 kaylah 08/17/20 01:58 08/19/20 05:23 Cepastat Lozenges 1 Kaylah PO 1 kaylah Q2H PRN Administration Sore Throat Tramadol HCl 50 mg 08/14/20 16:34 08/18/20 05:50 Tramadol Hcl 50 Mg Tab PO 50 mg QIDPRN PRN Administration Moderate Pain (4-6) - Exam General Appearance: NAD, awake alert Eye: PERRL Heart: RRR, no murmur, no gallops, no rubs, normal peripheral pulses Respiratory: CTAB, no wheezes, no rales, no ronchi, normal chest expansion, no tachypnea, normal percussion Gastrointestinal: soft, non-tender, non-distended, normal bowel sounds Skin: normal turgor, no lesions, no rashes Hosp A/P - Plan old records reviewed/req A/P: Hx of liver cancer & hepatitis with associated cirrhosis & portal vein thrombosis. # Portal vein thrombosis: No issues have been reported. Per previous reports MRI on March 2020 shows extension of thrombus to superior mesenteric vein & splenic vein. Possible increased risk of small bowel infarction due to progressive thrombosis. Transitioned to oral anticoagulation (Eliquis). Patient will follow up as outpatient with oncology team in [place]. # Hematochezia: No further episodes reported. Okay to restart anticoagulation. GI following. # Hepatic carcinoma: Follow up with [place] oncology group for further treatment. # Liver cirrhosis: Multifactorial in setting of above. Hyponatremia stable. Continue with nadolol. Continue with PO Spironolactone. Transition to PO Lasix upon discharge. # DM: Continue with current regimen. Recommend close outpatient follow up. DISPOSITION: Anticipate DC in 24 hrs if patient remains stable.
--- NOTE | 2020-08-20 13:43 | PRG ---
DATE OF SERVICE: 08/20/2020 SUBJECTIVE: Ms. Sage has no acute complaints. She is tolerating her diet well. No significant abdominal pain. Her lower extremity edema is improved. OBJECTIVE: VITAL SIGNS: Her weight has decreased from 163 pounds to 145 pounds with diuresis. Temperature is 99.1, pulse 62, blood pressure 125/60. GENERAL: She is in no acute distress. Alert and oriented x3. LUNGS: Clear to auscultation bilaterally. HEART: Regular rate and rhythm without murmur. ABDOMEN: Soft, nontender, and nondistended. Bowel sounds are present. EXTREMITIES: Trace lower extremity edema. IMPRESSION: 1. Hepatocellular carcinoma. 2. Cirrhosis. 3. Portal vein thrombosis extending to the superior mesenteric vein now. 4. Hematochezia, resolved, on full-dose heparin over the last few days. RECOMMENDATIONS: 1. We will change to Eliquis today and heparin has been discontinued. 2. She will discharge home tomorrow to follow up in [place] with her oncologist. 3. I will sign off. Please call if GI can be of assistance. Job ID: [id number]
[2020-08-20 15:39] LABS: Anion Gap 12 mmol/L (10-20); BUN (Urea Nitrogen) 19 mg/dL (9.8-20.1); Calc. Creatinine Clearance 0 mL/min (70-130); Calcium 8.3 mg/dL (7.8-10.44); Carbon Dioxide 31 mmol/L (23-31); Chloride 94 mmol/L (98-107); Glucose 191 mg/dL (80-115); Potassium 3.9 mmol/L (3.5-5.1); Sodium 133 mmol/L (136-145)
[2020-08-20 15:50] LABS: Band 1 % (5-11); Eosinophils 5 % (0-10); Lymphocytes 2 % (21-51); MDiff Complete? YES; Mean Corpuscular Hemoglobin 31.1 pg (27.0-31.0); Mean Corpuscular Volume 97.2 fL (78.0-98.0); Mean Platelet Volume 7.5 fL (7.4-10.4); Monocytes 19 % (0-10); Neutrophil 66 % (42-75); Platelet Count 131 thou/uL (130-400); Platelet Morphology Comment Appears Adequate; Polychromasia SLIGHT = 2-3 cells (100X) (0-2/hpf); RBC Distribution Width 14.1 % (11.5-14.5); Reactive Lymphocytes 7 % (0-10); Red Blood Cell (RBC) Count 4.84 mill/uL (4.20-5.40); Target Cells SLIGHT = 2-5 cells (100X) (0-1/hpf); White Blood Cell (WBC) Count 7.8 thou/uL (4.8-10.8)
[2020-08-20] MEDS: HumaLOG 300 UNITS/3 ML VIAL SC PRN (21:26)
[2020-08-20] MEDS: Apixaban 5 MG TAB PO SCH (21:26)
[2020-08-21 04:48] LABS: Anion Gap 13 mmol/L (10-20); BUN (Urea Nitrogen) 20 mg/dL (9.8-20.1); Calc. Creatinine Clearance 0 mL/min (70-130); Carbon Dioxide 29 mmol/L (23-31); Chloride 96 mmol/L (98-107); Glucose 184 mg/dL (80-115); Potassium 3.8 mmol/L (3.5-5.1); Sodium 134 mmol/L (136-145)
[2020-08-21 05:05] LABS: Hemoglobin 14.1 g/dL (12.0-16.0); Mean Corpuscular HGB CONC 33.5 g/dL (32.0-36.0); Mean Corpuscular Hemoglobin 32.3 pg (27.0-31.0); Mean Corpuscular Volume 96.6 fL (78.0-98.0); Mean Platelet Volume 7.6 fL (7.4-10.4); Platelet Count 96 thou/uL (130-400); RBC Distribution Width 13.9 % (11.5-14.5); Red Blood Cell (RBC) Count 4.35 mill/uL (4.20-5.40); White Blood Cell (WBC) Count 7.8 thou/uL (4.8-10.8)
[2020-08-21 05:06] LABS: Band 1 % (5-11); Eosinophils 8 % (0-10); Lymphocytes 3 % (21-51); MDiff Complete? YES; Monocytes 19 % (0-10); Neutrophil 69 % (42-75); Platelet Morphology Comment Appears Decreased
[2020-08-21] MEDS: Furosemide 40 MG/4 ML VIAL SLOW IVP SCH ×2 (05:57→13:46)
[2020-08-21 06:10] VITALS: BMI 25.9
[2020-08-21] MEDS: HumaLOG 300 UNITS/3 ML VIAL SC PRN ×2 (06:12→13:48)
[2020-08-21] MEDS: Mometasone 200 MCG/Formoterol 5 MCG 120 PUFF INHALER INH SCH (07:10)
[2020-08-21 08:08] VITALS: BP 118/58; TEMP 97.9
[2020-08-21] MEDS: Nadolol 40 MG TAB PO SCH (08:18)
[2020-08-21] MEDS: Spironolactone 100 MG TAB PO SCH (08:18)
[2020-08-21] MEDS: Apixaban 5 MG TAB PO SCH (09:15)
--- NOTE | 2020-08-21 12:30 | PDOC.DS.DS ---
Provider - Provider Date of Admission: 08/14/20 16:35 Date of Discharge: 08/21/20 Admitting Provider: Rodney Hawkins MD Consultations: Gastroentrology Primary Care Physician: Ten Huang MD Course - Hospital Course Hospital Course: Patient with PMH of liver cancer with metastasis being treated by her oncologist in [place] presents initially with cc of orthopnea and shortness of breath. Sent in by GI physician for further evaluation after she reponded poorly to PO diuresis. Per documentation she had also mentioned having had melanotic stool. Noted to be in fluid overload at arrival. Started on IV diuresis and monitored for evidence of bleeding. She did have an episode of melanotic stools while in the hospital but she remained hemodynamically stable. Her anticoagulation was transiently held and later noticed to have have evidence of brown stools with BRBPR likely in setting of hemorrhoidal bleed per GI. After patient remained stable her AC with eliquis was re-initiated without any subsequent evidence of bleeding. She does have known portal vein thrombosis with extension to super mesenteric vein which can put her at higher risk of bowel inschemia. At time of discharge patient appears to have responded well to diuresis. She continues to require some oxygen at rest and on ambulation but continues to improve cli nically. During today's exam she speaks in full sentences with no evidence of distress. She is being discharged on diuretics and restarted on Eliquis. If her symptoms were to recur on her breathing worsens despite continues diuresis she may have to consider pleurex catheter. She is being discharge on oxygen with indications to follow up with PCP and oncology next (2 days from now). Home services being provided. Resuscitation Status: 08/15/20 05:59 Resuscitation Status Routine Resuscitation Status: FULL: Full Resuscitation D[facility] to full code - Labs Lab Results: 08/21/20 03:46 08/21/20 03:46 Abnormal Lab Results - Last 48 hrs 08/19/20 13:37: APTT Greater than 250.0 H* 08/19/20 15:05: APTT Greater than 250.0 H* 08/19/20 17:20: APTT 94.2 H 08/19/20 23:42: APTT Greater than 250.0 H* 08/20/20 03:05: Sodium 131 L, Chloride 94 L 08/20/20 03:05: MCH 31.7 H, Plt Count 108 L, MPV 7.3 L, Lymphocytes % (Manual) 7 L, Monocytes % (Manual) 11 H, Plt Morphology Comment Appears Decreased L 08/20/20 03:05: APTT 139.9 H* 08/20/20 05:05: APTT 46.2 H 08/20/20 15:11: Sodium 133 L, Chloride 94 L 08/20/20 15:12: Hct 47.1 H, MCH 31.1 H, Band Neuts % (Manual) 1 L, Lymphocytes % (Manual) 2 L, Monocytes % (Manual) 19 H 08/21/20 03:46: Sodium 134 L, Chloride 96 L 08/21/20 03:46: MCH 32.3 H, Plt Count 96 L, Band Neuts % (Manual) 1 L, Lymphocytes % (Manual) 3 L, Monocytes % (Manual) 19 H, Plt Morphology Comment Appears Decreased L Microbiology - Entire Visit 08/15/20 12:35 Stool C. difficile GDH Antigen & Toxins - Final - Physical Exam Vitals: Vital Signs (12 hours) Temp Pulse BP Pulse Ox 08/21/20 08:06 97.9 F 62 118/58 L 95 08/21/20 08:00 97.9 F 62 118/58 L 95 Weight Weight 137 lb 1 oz Physical Exam: The patient was seen and examined on the day of discharge. Problem - Discharge Plan Assessment: A/P: Hx of liver cancer & hepatitis with associated cirrhosis & portal vein thrombosis. # Portal vein thrombosis: No issues have been reported. Per previous reports MRI on March 2020 shows extension of thrombus to superior mesenteric vein & splenic vein. Possible increased risk of small bowel infarction due to progressive thrombosis. Transitioned to oral anticoagulation (Eliquis) without evidence of bleeding. Patient will follow up as outpatient with oncology team in [place] (2 days from now). # Hematochezia: No further episodes reported. Likely hemorrhoidal bleed per GI. Okay to restart anticoagulation. Outpatient follow up with GI. # Hepatic carcinoma: Follow up with [place] oncology group for further treatment. # Liver cirrhosis: Multifactorial in setting of above. Hyponatremia stable. Continue with nadolol. Continue with PO Spironolactone. Transition to PO Lasix upon discharge. # DM: Continue with current regimen. Recommend close outpatient follow up. Plan - Discharge Medications Prescriptions: Spironolactone [Aldactone] 100 mg PO QAM-WM 30 Days #30 tab Mometasone/Formoterol 200/5 [Dulera 200 Mcg/5 Mcg Inhaler] 2 puff INH BID-RT 30 Days #1 inh Apixaban [Eliquis] 5 mg PO BID 30 Days #60 tablet Pantoprazole [Protonix] 40 mg PO DAILY 30 Days #30 tab Home Medications: Medication Instructions Recorded Confirmed Type Furosemide [Lasix] 20 mg PO BID 01/14/18 08/14/20 History Potassium Chloride [Klor-Con M10] 10 meq PO DAILY 01/14/18 08/14/20 History traMADol HCl [Tramadol HCl] 50 mg PO QID PRN 01/14/18 08/14/20 History Albuterol Sulfate [Proair 90 mcg IH PRN PRN 05/29/20 08/14/20 History Digihaler] Nadolol 20 mg PO DAILY 05/29/20 08/14/20 History Atorvastatin Calcium 5 mg PO DAILY 08/14/20 08/14/20 History Canagliflozin [Invokana] 1 tablet PO QAM- 08/14/20 08/14/20 History HYDROcodone/Acetaminophen [[place] 1 tab PO PRN PRN 08/14/20 08/14/20 History 7.5-325 Tablet] Ondansetron [Ondansetron ODT] 8 mg PO Q8HR PRN 08/14/20 08/14/20 History Prochlorperazine Maleate 5 mg PO Q6HR PRN 08/14/20 08/14/20 History [Compazine] glipiZIDE [glipiZIDE ER] 1 tab PO QAM 08/14/20 08/14/20 History metFORMIN [Glucophage] 500 mg PO QPM-WM 08/14/20 08/14/20 History Apixaban [Eliquis] 5 mg PO BID tab 08/21/20 Rx Apixaban [Eliquis] 5 mg PO BID 30 Days #60 tablet 08/21/20 Rx Bisacodyl [Dulcolax] 10 mg NM DAILYPRN PRN supp 08/21/20 Rx Calcium Carbonate [Tums] 1,000 mg PO Q4H PRN tab 08/21/20 Rx Cepastat Lozenges 1 janes PO Q2H PRN janes 08/21/20 Rx Fluticasone/Salmeterol [Advair 1 inh PO BID 30 Days #1 inhaler 08/21/20 08/14/20 Rx Diskus 250/50] Guaifenesin DM 100-10 [Robitussin 15 ml PO Q4H PRN ml 08/21/20 Rx DM] Mometasone/Formoterol 200/5 2 puff INH BID-RT 30 Days #1 inh 08/21/20 Rx [Dulera 200 Mcg/5 Mcg Inhaler] Pantoprazole [Protonix] 40 mg PO DAILY 30 Days #30 tab 08/21/20 Rx Sennosides/Docusate Sodium 2 tab PO BIDPRN PRN tab 08/21/20 Rx [Senokot S] Spironolactone [Aldactone] 100 mg PO QAM-WM 30 Days #30 tab 08/21/20 Rx Allergies: No Known Drug Allergies Allergy (Verified 08/14/20 22:17) - Discharge Instructions Discharge Instructions:: Follow-up with oncologist in [place] within 7 days of discharge date - Follow up Plan Referrals: Ten Huang MD [Primary Care Provider] - 7 Days (Call after discharge to schedule follow-up appointment) Quality - Care Measures CORE MEASURES:: N/A
--- NOTE | 2020-08-24 06:07 | PQF ---
CLINICAL DOCUMENTATION CLARIFICATION FORM: Dear : Ariel Woo Date / Time: 08/24/20 0606 Please exercise your independent, professional judgment in responding to the clarification form. Clinical indicators are provided on the bottom of this form for your review In your clinical opinion based on clinical findings below, can you please identify the etiology of Anasarca if due to: Please check appropriate box(es): [ ] Hepatocellular Carcinoma [ X ] Liver Cirrhosis [ ] Portal Vein Thrombosis [ ] Other diagnosis, please specify [ ] Unable to determine Physician Signature: Date/Time: For continuity of documentation, please document condition throughout progress notes and discharge summary. Thank You To be completed by CDI/Coding staff for physician review: Present Clinical Indicators - Signs / Symptoms / Labs Results and Location in Medical Record [X] BP 125/66, Pulse 98, Resp 24, Temp 98.5 Vital signs 08/14 [X] CT abdomen : Cirrhotic morphology of liver. Portal vein thomrbosis with thrombus extending into splenic vein. Small amount of ascites and promionent mesenteric edema Imaging Dr Vegas 08/14 [X] Progressive worsening of lower extremity swelling, SOB, severe orthopnea H&P p1 08/14 Dr Hawkins [X] Anasarca/Portal vein thrombosis, acute onset of significant lower extremity edema with minimal ascites Consult Dr Armendariz 08/14 [X] Anasarca/Hepatic hydrothorax Consult Dr Armendariz 08/14 [X] Fluid overload ED Notes 08/14 [X] Likely right sided pleural effusion from liver cancer with either due to low albumin HP 08/14 [X] On imaging there is noted an extension of portal vein thrombosis..which could potentially contributing to increased portal pressure and edema in the lower extremities and abdomen Consult 08/15 Present Risk Factors Results and Location in Medical Record [X] 69 year-old Female H&P p1 08/14 Dr Hawkins [X] Liver cancer with mets on chemo H&P p1 08/14 Dr Hawkins [X] Cirrhosis Consult Dr Armendariz 08/14 [X] HTN Consult Dr Armendariz 08/14 [X] Chronic hepatitis C Consult Dr Armendariz 08/14 Present Treatments Results and Location in Medical Record [X] IV Zofran 4 gm MAR 08/14 [X] IV Lasix 40 mg NOV 23 [X] GE consult Consult Dr Armendariz 08/14 [X] Heparin drip Consult Dr Armendariz 08/14 [X] Low sodium diet Consult Dr Armendariz 08/14 CDS/Quality Assurance Representative Signature: Tamiko Wick Phone #: [phone] Date/Time: 08/24/2020 0606 This is a permanent part of the Medical Record [facility]
== END 2020-08-21 16:45 | disposition home health service (06) | DRG 432 ==
LOC: ERS 14:42 → ONC 16:35
PROVIDERS: ADMIT Internal Medicine; ATTEND Internal Medicine
PROC: 0T9B70Z Drainage of Bladder with Drainage Device, Via Natural or Artificial Opening (ICD-10-PCS; principal; 2020-08-15)
DX: K74.60 Unspecified cirrhosis of liver (principal); I81 Portal vein thrombosis; K55.059 Acute (reversible) ischemia of intestine, part and extent unspecified; C22.0 Liver cell carcinoma; E87.1 Hypo-osmolality and hyponatremia; K76.6 Portal hypertension; C79.9 Secondary malignant neoplasm of unspecified site; Z20.828 Contact with and (suspected) exposure to other viral communicable diseases; K64.9 Unspecified hemorrhoids; E11.9 Type 2 diabetes mellitus without complications; E78.5 Hyperlipidemia, unspecified; E78.00 Pure hypercholesterolemia, unspecified; F17.210 Nicotine dependence, cigarettes, uncomplicated; B18.2 Chronic viral hepatitis C; J45.909 Unspecified asthma, uncomplicated; D73.5 Infarction of spleen; I10 Essential (primary) hypertension; K31.89 Other diseases of stomach and duodenum; R60.9 Edema, unspecified; E87.5 Hyperkalemia; T50.2X5A Adverse effect of carbonic-anhydrase inhibitors, benzothiadiazides and other diuretics, initial encounter; Z90.49 Acquired absence of other specified parts of digestive tract; Z90.710 Acquired absence of both cervix and uterus; Z86.73 Personal history of transient ischemic attack (TIA), and cerebral infarction without residual deficits; Z79.899 Other long term (current) drug therapy; Z79.84 Long term (current) use of oral hypoglycemic drugs
CPT/HCPCS: 36415; 36416; 71045; 71275; 74177; 76705; 80048; 80053; 83880; 84484; 85014; 85018; 85025; 85610; 85730; 86850; 86900; 86901; 87324; 87449; 87635; 93005; 93970; 94640; J1644; J1940; J2405; J7620; Q9967; U0003

== ENCOUNTER 2020-09-06 00:32 | Observation (INO) | payer MEDICARE, OTHER ==
[2020-09-06 03:11] LABS: Band 2 % (5-11); Eosinophils 1 % (0-10); Lymphocytes 6 % (21-51); MDiff Complete? YES; Mean Corpuscular HGB CONC 32.5 g/dL (32.0-36.0); Mean Corpuscular Hemoglobin 30.7 pg (27.0-31.0); Mean Corpuscular Volume 94.6 fL (78.0-98.0); Mean Platelet Volume 8.8 fL (7.4-10.4); Monocytes 15 % (0-10); Neutrophil 75 % (42-75); Platelet Count 111 thou/uL (130-400); Platelet Morphology Comment Appears Decreased; RBC Distribution Width 14.2 % (11.5-14.5); Reactive Lymphocytes 1 % (0-10); Red Blood Cell (RBC) Count 4.89 mill/uL (4.20-5.40); White Blood Cell (WBC) Count 15.5 thou/uL (4.8-10.8)
[2020-09-06 03:21] LABS: Bilirubin Negative (Negative); Blood, Urine Trace (Negative); Clarity Clear (Clear); Glucose, Urine (Dipstick) Greater than 1000 mg/dL (Negative); Ketone, Urine Negative (Negative); Leukocyte 25 Leu/uL (Negative); Nitrite Negative (Negative); Protein, Urine (Dipstick) Negative (Neg-Trace); Specific Gravity, Urine 1.035 (1.002-1.036); Squamous Epithelial 0-3 HPF (0-3); Urobilinogen Normal mg/dL (Less than 2); pH, Urine 5.5 (5.0-9.0)
[2020-09-06 03:24] LABS: Bacteria/HPF 1+ HPF (None Seen)
[2020-09-06 04:21] LABS: ALT (SGPT) 47 U/L (8-55); AST (SGOT) 41 U/L (5-34); Albumin 3.1 g/dL (3.4-4.8); Alkaline Phosphatase 100 U/L (40-110); BUN (Urea Nitrogen) 39 mg/dL (9.8-20.1); Bilirubin, Total 2.1 mg/dL (0.2-1.2); Calc. Creatinine Clearance 0 mL/min (70-130); Calcium 8.9 mg/dL (7.8-10.44); Chloride 96 mmol/L (98-107); Globulin 3.1 g/dL (2.4-3.5); Glucose 262 mg/dL (80-115); Potassium 5.4 mmol/L (3.5-5.1); Protein, Total 6.2 g/dL (6.0-8.3); Sodium 130 mmol/L (136-145)
[2020-09-06 04:23] LABS: Carbon Dioxide 25 mmol/L (23-31)
[2020-09-06 04:29] LABS: Anion Gap 14 mmol/L (10-20)
[2020-09-06 07:18] LABS: Anion Gap 18 mmol/L (10-20); BUN (Urea Nitrogen) 39 mg/dL (9.8-20.1); Calc. Creatinine Clearance 0 mL/min (70-130); Calcium 8.2 mg/dL (7.8-10.44); Carbon Dioxide 22 mmol/L (23-31); Chloride 100 mmol/L (98-107); Glucose 210 mg/dL (80-115); Potassium 5.5 mmol/L (3.5-5.1); Sodium 134 mmol/L (136-145)
--- NOTE | 2020-09-06 08:03 | RAD ---
Chest AP view INDICATION: Generalized weakness COMPARISON: August 14, 2020 FINDINGS: Lungs: Improved aeration the right lower lobe. Mild residual right basilar subsegmental atelectasis. Left lung is clear. COPD changes stable. Cardiac silhouette: The cardiomediastinal silhouette appears within normal limits. Pulmonary vasculature: Normal Pleural spaces: Small right pleural effusion persists. Reduced in size from the prior exam. Upper abdomen: No abnormality seen. Osseous structures: No acute osseous abnormality. Additional findings: None. IMPRESSION: Decreasing size right-sided pleural effusion. Improving but persistent mild right basilar subsegmenta l atelectasis.
[2020-09-06] MEDS ORDERED: Dextrose 5 % And 0.9 % NaCl 1,000 ML IV SCH (11:00)
--- NOTE | 2020-09-06 12:24 | PDOC.HHP ---
Hospitalist HPI - History of Present Illness Weakness History of Present Illness: Ms. Sage is a 61-year-old female with past medical history of liver cancer with mets, hepatitis, portal vein thrombosis on Eliquis, hypertension, diabetes mellitus, hyperlipidemia, pleural effusion with recent admission, who presents to the emergency room for generalized weakness. Patient reports that over the past few days she has felt tired, lethargic and reports she barely has the energy to walk. She also endorses a mild sore throat. She denies cough or shortness of breath. She denies chest pain, abdominal pain, shortness of breath. She denies dysuria or frequency. She denies any weakness numbness or tingling. Of note she was recently admitted a few weeks ago for pleural effusion and has been started on additional Lasix and spironolactone which she has been taking consistently. Emergency room initial vital signs 123/71, 70, 16, 97.5, 95% on room air. Chest x-ray showed mild pleural effusion much improved from prior. BUN/CR 39/0.74. Potassium 5.5. Sodium 134. AST/ALT 41/47. H/H 15.0/46.3. WBC 15.5. Patient received 1 L of normal saline. Hospitalist ROS - Review of Systems Constitutional: reports: weakness, malaise. denies: fever, chills, sweats, other Eyes: denies: pain, vision change, conjunctivae inflammation, eyelid inflammation, redness, other ENT: denies: ear pain, ear discharge, nose pain, nose discharge, nose congestion, mouth pain, mouth swelling, throat pain, throat swelling, other Respiratory: reports: other. denies: cough, dry, shortness of breath, hemoptysis, SOB with excertion, pleuritic pain, sputum, wheezing Cardiovascular: denies: chest pain, palpitations, orthopnea, paroxysmal noc. dyspnea, edema, light headedness, other Gastrointestinal: denies: nausea, vomiting, abdominal pain, diarrhea, constipation, melena, hematochezia (Sore throat), other Genitourinary: denies: dysuria, frequency, incontinence, hematuria, retention, other Musculoskeletal: denies: neck pain, shoulder pain, arm pain, back pain, hand pain, leg pain, foot pain, other Skin: denies: rash, lesions, joann, bruising, other Neurological: denies: weakness, numbness, incoordination, change in speech, confusion, seizures, other - Medication Medications: New medications include Lasix Potassium Tramadol Albuterol Haldol Atorvastatin Invokana Zofran , Prior Metformin Eliquis Protonix Spironolactone No known drug allergies Hospitalist History - Past Medical History Other Medical History: Past medical history includes Liver cancer with mets, patient being treated at [facility] Hepatitis which was treated per patient Portal vein thrombosis on Eliquis Pleural effusion Hypertension Hyperlipidemia Type 2 diabetes mellitus - Past Surgical History Other Surgical History: Appendectomy Cholecystectomy Hysterectomy - Family History Other Family History: No pertinent family medical history - Social History Smoking Status: Never smoker Alcohol: reports: None Drugs: reports: none Living Situation: With Family Activity level: independent ambulation - Exam General Appearance: NAD, awake alert Eye: PERRL, anicteric sclera ENT: dry oral mucosa Neck: supple, symmetric, no JVD, no thyromegaly, no lymphadenopathy, no carotid bruit Heart: RRR, no murmur, no gallops, no rubs, normal peripheral pulses Respiratory: CTAB, no wheezes, no rales, no ronchi, normal chest expansion, no tachypnea, normal percussion Gastrointestinal: soft, non-tender, non-distended, normal bowel sounds, no palpable masses, no hepatomegaly, no splenomegaly, no bruit Extremities: no cyanosis, no clubbing, no edema Skin: normal turgor, no lesions, no rashes Neurological: cranial nerve grossly intact, normal sensation to touch, no weakness, no focal deficits, no new deficit Musculoskeletal: normal tone, normal strength, no muscle wasting Psychiatric: normal affect, normal behavior, A&O x 3 Hospitalist Results - Labs Result Diagrams: 09/07/20 04:16 09/07/20 04:16 Lab results: WBC 15.5 thou/uL (4.8-10.8) H 09/06/20 02:10 Hgb 15.0 g/dL (12.0-16.0) 09/06/20 02:10 Hct 46.3 % (36.0-47.0) 09/06/20 02:10 MCV 94.6 fL (78.0-98.0) 09/06/20 02:10 Plt Count 111 thou/uL (130-400) L 09/06/20 02:10 Band Neuts % (Manual) 2 % (5-11) L 09/06/20 02:10 Sodium 134 mmol/L (136-145) L 09/06/20 06:41 Potassium 5.5 mmol/L (3.5-5.1) H 09/06/20 06:41 Chloride 100 mmol/L (98-107) 09/06/20 06:41 Carbon Dioxide 22 mmol/L (23-31) L 09/06/20 06:41 BUN 39 mg/dL (9.8-20.1) H 09/06/20 06:41 Creatinine 0.74 mg/dL (0.6-1.1) 09/06/20 06:41 Glucose 210 mg/dL (80-115) H 09/06/20 06:41 Calcium 8.2 mg/dL (7.8-10.44) 09/06/20 06:41 Total Bilirubin 2.1 mg/dL (0.2-1.2) H 09/06/20 03:48 AST 41 U/L (5-34) H 09/06/20 03:48 ALT 47 U/L (8-55) 09/06/20 03:48 Alkaline Phosphatase 100 U/L (40-110) 09/06/20 03:48 Troponin I Less than 0.010 ng/mL (< 0.028) 09/06/20 02:57 B-Natriuretic Peptide 60.6 pg/mL (0-100) 09/06/20 02:10 Serum Total Protein 6.2 g/dL (6.0-8.3) 09/06/20 03:48 Albumin 3.1 g/dL (3.4-4.8) L 09/06/20 03:48 Urine Ketones Negative mg/dL (Negative) 09/06/20 02:53 Urine Blood Trace (Negative) A 09/06/20 02:53 Urine Nitrite Negative (Negative) 09/06/20 02:53 Ur Leukocyte Esterase 25 Raji/uL (Negative) A 09/06/20 02:53 Urine RBC 4-6 HPF (0-3) A 09/06/20 02:53 Urine WBC 4-6 HPF (0-3) A 09/06/20 02:53 Ur Squamous Epith Cells 0-3 HPF (0-3) 09/06/20 02:53 Urine Bacteria 1+ HPF (None Seen) A 09/06/20 02:53 Hospitalist H&P A/P - Plan Plan: Generalized weakness 61F with history of liver cancer with mets, hepatitis, hypertension, hyperlipidemia, type 2 diabetes mellitus presents with generalized weakness over the past 3 days. Patient likely dehydrated with elevated BUN/CR greater than 20 likely secondary to newly starting on Lasix and spironolactone from last admission for her pleural effusion. Repeat chest x-ray shows near resolution of her pleural effusion. Patient received 1 L of normal saline in emergency room. No signs of infection and benign physical exam. Plan Likely secondary to dehydration IV fluids Hyperkalemia Patient's potassium mildly elevated to 5.4, 5.5 on repeat. Likely secondary to her newly initiating spironolactone. On repeat dose medications it also appears she was taking Lasix and potassium. Will hold potassium and spironolactone. No EKG changes. Plan Hold spironolactone, potassium Repeat potassium Telemetry monitoring History of liver cancer History of liver cancer with mets, patient follows with [facility]. Reports recent diagnostic imaging. Is not currently on chemotherapy. Patient will need to continue oncology follow-up as outpatient. Plan Continue nadolol Outpatient follow-up Leukocytosis WBC 15 on admission. Patient afebrile with no other signs of infection. Suspect likely hemoconcentration since other blood counts are also elevated in setting of dehydration. Will continue to monitor. Hypertension Hold home antihypertensives Hyperlipidemia Continue home atorvastatin Type 2 diabetes mellitus Hold oral agents. Will place insulin sliding scale. ACHS glucose checks. Portal vein thrombosis Patient has remote history of portal vein thrombosis, on Eliquis. We will continue. GERD Continue home Protonix DVT prophylaxison Eliquis Full code MDM his son Case discussed with Dr. Castellanos.
[2020-09-06] MEDS ORDERED: Acetaminophen 325 MG TAB PO PRN (12:25)
[2020-09-06] MEDS ORDERED: HumaLOG 300 UNITS/3 ML VIAL SC PRN ×3 (12:36→16:16)
[2020-09-06] MEDS ORDERED: Dextrose 5% in Water 1,000 ML IV PRN (12:36)
[2020-09-06] MEDS ORDERED: Dextrose 50% Abboject 50 ML SYRINGE SLOW IVP PRN (12:36)
[2020-09-06 15:44] LABS: Anion Gap 14 mmol/L (10-20); BUN (Urea Nitrogen) 35 mg/dL (9.8-20.1); Calc. Creatinine Clearance 0 mL/min (70-130); Calcium 8.4 mg/dL (7.8-10.44); Carbon Dioxide 24 mmol/L (23-31); Chloride 98 mmol/L (98-107); Glucose 443 mg/dL (80-115); Potassium 5.8 mmol/L (3.5-5.1); Sodium 130 mmol/L (136-145)
[2020-09-06] MEDS ORDERED: Sodium Chloride 0.9% 1,000 ML IV SCH ×3 (16:15→18:15)
[2020-09-06] MEDS ORDERED: Calcium Gluconate 4.6 MEQ in Sodium Chloride 0.9% 100 ML IVPB SCH (16:15)
[2020-09-06] MEDS ORDERED: Furosemide 20 MG TAB PO SCH (16:30)
[2020-09-06] MEDS ORDERED: Insulin Regular 300 UNITS/3 ML VIAL IVP SCH (16:30)
[2020-09-06 16:34] VITALS: BMI 25.3
[2020-09-06 18:06] LABS: Anion Gap 14 mmol/L (10-20); BUN (Urea Nitrogen) 31 mg/dL (9.8-20.1); Calc. Creatinine Clearance 65 mL/min (70-130); Carbon Dioxide 22 mmol/L (23-31); Chloride 102 mmol/L (98-107); Glucose 305 mg/dL (80-115); Potassium 5.4 mmol/L (3.5-5.1); Sodium 133 mmol/L (136-145)
[2020-09-06] MEDS: Sodium Chloride 0.9% 1,000 ML IV SCH (18:33)
[2020-09-06] MEDS: Mometasone 200 MCG/Formoterol 5 MCG 120 PUFF INHALER INH SCH (19:17)
[2020-09-06] MEDS: Apixaban 5 MG TAB PO SCH (19:50)
[2020-09-06 22:49] LABS: Anion Gap 13 mmol/L (10-20); BUN (Urea Nitrogen) 28 mg/dL (9.8-20.1); Calc. Creatinine Clearance 81 mL/min (70-130); Calcium 8.1 mg/dL (7.8-10.44); Carbon Dioxide 20 mmol/L (23-31); Chloride 102 mmol/L (98-107); Glucose 252 mg/dL (80-115); Potassium 5.2 mmol/L (3.5-5.1); Sodium 130 mmol/L (136-145)
[2020-09-06 23:31] LABS: SARS-CoV-2 MS2 Positive; SARS-CoV-2 N Gene Negative; SARS-CoV-2 S Gene Negative; SARS-CoV-2 by NAA Not Detected (NotDetected); SARS-CoV-2 orf1ab Negative
[2020-09-07] MEDS: Sodium Chloride 0.9% 1,000 ML IV SCH (02:47)
[2020-09-07 05:02] LABS: Anion Gap 12 mmol/L (10-20); BUN (Urea Nitrogen) 26 mg/dL (9.8-20.1); Calc. Creatinine Clearance 89 mL/min (70-130); Calcium 7.8 mg/dL (7.8-10.44); Carbon Dioxide 19 mmol/L (23-31); Chloride 104 mmol/L (98-107); Glucose 234 mg/dL (80-115); Potassium 5.1 mmol/L (3.5-5.1); Sodium 130 mmol/L (136-145)
[2020-09-07 05:04] LABS: Anion Gap 12 mmol/L (10-20); BUN (Urea Nitrogen) 26 mg/dL (9.8-20.1); Calc. Creatinine Clearance 92 mL/min (70-130); Calcium 7.8 mg/dL (7.8-10.44); Carbon Dioxide 19 mmol/L (23-31); Chloride 105 mmol/L (98-107); Glucose 233 mg/dL (80-115); Potassium 5.1 mmol/L (3.5-5.1); Sodium 131 mmol/L (136-145)
[2020-09-07 05:05] LABS: #Basophils 0.1 thou/uL (0.0-0.2); #Eosinphils 0.2 thou/uL (0.0-0.7); #Lymphocytes 0.5 thou/uL (1.20-3.40); #Monocytes 1.6 thou/uL (0.11-0.59); #Neutrophils 8.9 thou/uL (1.40-6.50); %Basophils 0.7 % (0.0-1.0); %Eosinophils 1.5 % (0.0-10.0); %Lymphocytes 4.5 % (21.0-51.0); %Monocytes 14.5 % (0.0-10.0); %Neutrophils 78.8 % (42.0-75.0); Hemoglobin 12.8 g/dL (12.0-16.0); Mean Corpuscular HGB CONC 33.9 g/dL (32.0-36.0); Mean Corpuscular Hemoglobin 32.3 pg (27.0-31.0); Mean Corpuscular Volume 95.4 fL (78.0-98.0); Mean Platelet Volume 8.6 fL (7.4-10.4); Platelet Count 55 thou/uL (130-400); RBC Distribution Width 13.9 % (11.5-14.5); Red Blood Cell (RBC) Count 3.96 mill/uL (4.20-5.40); White Blood Cell (WBC) Count 11.2 thou/uL (4.8-10.8)
[2020-09-07 05:06] LABS: Platelet Morphology Comment Appears Decreased
[2020-09-07 07:58] VITALS: BP 138/70; TEMP 98.4
[2020-09-07] MEDS: Mometasone 200 MCG/Formoterol 5 MCG 120 PUFF INHALER INH SCH (08:00)
[2020-09-07] MEDS: Apixaban 5 MG TAB PO SCH (08:38)
[2020-09-07] MEDS ORDERED: Nadolol 40 MG TAB PO SCH (09:00)
[2020-09-07] MEDS ORDERED: Nitrofurantoin Monohyd/M-Cryst 100 MG CAP PO SCH (09:00)
[2020-09-07] MEDS ORDERED: Atorvastatin Calcium 10 MG TAB PO SCH (09:00)
--- NOTE | 2020-09-07 10:01 | PDOC.DS.DS ---
Provider - Provider Date of Admission: 09/06/20 08:53 Date of Discharge: 09/07/20 Admitting Provider: Alonzo Castellanos MD Primary Care Physician: Ten Huang MD Course - Hospital Course Hospital Course: HISTORY OF PRESENT ILLNESS ON ADMISSION Ms. Sage is a 61-year-old female with past medical history of liver cancer with mets, hepatitis, portal vein thrombosis on Eliquis, hypertension, diabetes mellitus, hyperlipidemia, pleural effusion with recent admission, who presents to the emergency room for generalized weakness. Patient reports that over the past few days she has felt tired, lethargic and reports she barely has the energy to walk. She also endorses a mild sore throat. She denies cough or shortness of breath. She denies chest pain, abdominal pain, shortness of breath. She denies dysuria or frequency. She denies any weakness numbness or tingling. Of note she was recently admitted a few weeks ago for pleural effusion and has been started on additional Lasix and spironolactone which she has been taking consistently. Emergency room initial vital signs 123/71, 70, 16, 97.5, 95% on room air. Chest x-ray showed mild pleural effusion much improved from prior. BUN/CR 39/0.74. Potassium 5.5. Sodium 134. AST/ALT 41/47. H/H 15.0/46.3. WBC 15.5. Patient received 1 L of normal saline. BRIEF HOSPITAL COURSE Ms. Sage is a 61-year-old female with a past medical history of liver cancer with mets, hepatitis, portal vein thrombosis on Eliquis, hypertension, diabetes, hyperlipidemia, malignant pleural effusion with recent admission who presented to the emergency room on 09/06/2020 for generalized weakness. Patient was found to be dehydrated and mildly hyperkalemic. Patient malaise greatly improved with IV fluids. Her initial potassium was 5.5, peaking at 5.8. On further questioning patient was taking Lasix, potassium, and spironolactone at the same time. Her potassium was discontinued, her Lasix dose was cut in half and her spironolactone dose was also cut in half. Patient's potassium normalized day of discharge, and patient felt back to her baseline. She was noted to have a positive urinalysis with suspected UTI also contributing to her generalized weakness and was started on a 5-day course of Macrobid which she will complete as an outpatient. Patient will need to follow-up with her primary care provider within the next week for further monitoring of her potassium levels and medication adjustments as needed. Patient will also need to follow-up with her oncologist at [facility] for continued treatment of her liver cancer. Patient was instructed to return to the emergency room should she have any new worsening or concerning symptoms. Patient is in agreement with assessment and plan. Case discussed with attending physician, Dr. Castellanos who agrees patient is medically safe for discharge in agreement with plan as above. Resuscitation Status: 09/06/20 12:25 Resuscitation Status Routine Co-Sign Provider: Resuscitation Status: FULL: Full Resuscitation - Labs Lab Results: 09/07/20 04:16 09/07/20 04:16 Abnormal Lab Results - Last 48 hrs 09/06/20 02:10: WBC 15.5 H, Plt Count 111 L, Band Neuts % (Manual) 2 L, Lymphocytes % (Manual) 6 L, Monocytes % (Manual) 15 H, Plt Morphology Comment Appears Decreased L 09/06/20 02:53: Urine Glucose (UA) Greater than 1000 A, Urine Blood Trace A, Ur Leukocyte Esterase 25 A, Urine RBC 4-6 A, Urine WBC 4-6 A, Urine Bacteria 1+ A 09/06/20 03:48: Sodium 130 L, Potassium 5.4 H, Chloride 96 L, BUN 39 H, Total Bilirubin 2.1 H, AST 41 H, Albumin 3.1 L, Albumin/Globulin Ratio 1.0 L 09/06/20 06:41: Sodium 134 L, Potassium 5.5 H, Carbon Dioxide 22 L, BUN 39 H 09/06/20 15:02: Sodium 130 L, Potassium 5.8 H, BUN 35 H 09/06/20 17:40: Sodium 133 L, Potassium 5.4 H, Carbon Dioxide 22 L, BUN 31 H 09/06/20 22:24: Sodium 130 L, Potassium 5.2 H, Carbon Dioxide 20 L, BUN 28 H 09/07/20 04:16: Sodium 130 L, Carbon Dioxide 19 L, BUN 26 H, Creatinine 0.58 L 09/07/20 04:16: WBC 11.2 H, RBC 3.96 L, MCH 32.3 H, Plt Count 55 L, Neutrophils % 78.8 H, Lymphocytes % 4.5 L, Monocytes % 14.5 H, Neutrophils # 8.9 H, Lymphocytes # 0.5 L, Monocytes # 1.6 H, Plt Morphology Comment Appears Decreased L 09/07/20 04:16: Sodium 131 L, Carbon Dioxide 19 L, BUN 26 H, Creatinine 0.56 L Microbiology - Entire Visit 09/06/20 18:30 Nasopharyngeal swab Respiratory Virus Panel (PCR) - Final - Physical Exam Vitals: Vital Signs (12 hours) Temp Pulse Resp BP BP Pulse Ox 09/07/20 07:50 98.4 F 87 18 138/70 95 09/07/20 04:45 98.1 F 84 16 148/68 H 95 09/06/20 23:49 87 125/60 Weight Weight 134 lb 1.6 oz Physical Exam: The patient was seen and examined on the day of discharge. NAD, AOx3 Normocephalic, atraumatic Neck supple, no JVD, no lymphadenopathy RRR, no murmurs, rubs, or gallops Lungs CTAB, no wheezes, no dyspnea or tachypnea Abdomen soft, non-tender with normoactive bowel sounds Skin warm with no rashes, normal turgor Extremities with no edema and intact peripheral pulses Normal tone and muscle strength No focal deficits, no weakness Problem - Discharge Plan Plan of Treatment: Generalized weakness Secondary to over-diuresis and dehydration. Corrected with IVF and reduction of diuretics. Plan: -Lasix reduced from 20 mg BID to 20 mg daily -Spironolactone reduced from 100 mg daily to 50 mg daily Hyperkalemia Patient's potassium mildly elevated to 5.4, 5.5 on repeat, resolved to 5.1. Likely secondary to initiating potassium while on spironolactone. No EKG changes. Now resolved. -STOP potassium -Reduce lasix to 20 mg daily -Reduce spioronolactone to 50 mg daily -Follow up with PCP to monitor potassium levels Urinary Tract Infection UA grossly positive. Patient denies urinary symptoms, but may be contributing to her generalized weakness. Patient discharged on a 5 day course of macrobid. -Macrobid -PCP follow up History of liver cancer History of liver cancer with mets, patient follows with [facility]. Reports recent diagnostic imaging. Is not currently on chemotherapy. Patient will need to continue oncology follow-up as outpatient. Outpatient follow-up Leukocytosis WBC 15 on admission. Patient afebrile with no other signs of infection. Suspect likely hemoconcentration since other blood counts are also elevated in setting of dehydration. Resolved on day of admission. -PCP follow up -Return to ER if febrile, or worsening symptoms Case discussed with attending physician, Dr. Castellanos who has determined patient is medically safe for discharge home and is in agreement with above plan. Plan - Discharge Medications Prescriptions: Furosemide [Lasix] 20 mg PO DAILY 30 Days #30 tab Nitrofurantoin Monohyd/M-Cryst [Macrobid] 100 mg PO BID 5 Days #10 cap Spironolactone 50 mg PO DAILY 30 Days #30 tablet Home Medications: Medication Instructions Recorded Confirmed Type traMADol HCl [Tramadol HCl] 50 mg PO QID PRN 01/14/18 09/06/20 History Albuterol Sulfate [Proair 90 mcg IH PRN PRN 05/29/20 09/06/20 History Digihaler] Nadolol 20 mg PO DAILY 05/29/20 09/06/20 History Atorvastatin Calcium 5 mg PO DAILY 08/14/20 09/06/20 History Canagliflozin [Invokana] 1 tablet PO QAM- 08/14/20 09/06/20 History HYDROcodone/Acetaminophen [[place] 1 tab PO PRN PRN 08/14/20 09/06/20 History 7.5-325 Tablet] Ondansetron [Ondansetron ODT] 8 mg PO Q8HR PRN 08/14/20 09/06/20 History Prochlorperazine Maleate 5 mg PO Q6HR PRN 08/14/20 09/06/20 History [Compazine] glipiZIDE [glipiZIDE ER] 1 tab PO QAM 08/14/20 09/06/20 History metFORMIN [Glucophage] 500 mg PO QPM-WM 08/14/20 09/06/20 History Apixaban [Eliquis] 5 mg PO BID tab 08/21/20 09/06/20 Rx Apixaban [Eliquis] 5 mg PO BID 30 Days #60 tablet 08/21/20 09/06/20 Rx Bisacodyl [Dulcolax] 10 mg NM DAILYPRN PRN supp 08/21/20 09/06/20 Rx Calcium Carbonate [Tums] 1,000 mg PO Q4H PRN tab 08/21/20 09/06/20 Rx Cepastat Lozenges 1 janes PO Q2H PRN janes 08/21/20 09/06/20 Rx Fluticasone/Salmeterol [Advair 1 inh PO BID 30 Days #1 inhaler 08/21/20 09/06/20 Rx Diskus 250/50] Guaifenesin DM 100-10 [Robitussin 15 ml PO Q4H PRN ml 08/21/20 09/06/20 Rx DM] Mometasone/Formoterol 200/5 2 puff INH BID-RT 30 Days #1 inh 08/21/20 09/06/20 Rx [Dulera 200 Mcg/5 Mcg Inhaler] Pantoprazole [Protonix] 40 mg PO DAILY 30 Days #30 tab 08/21/20 09/06/20 Rx Sennosides/Docusate Sodium 2 tab PO BIDPRN PRN tab 08/21/20 09/06/20 Rx [Senokot S] Furosemide [Lasix] 20 mg PO DAILY 30 Days #30 tab 09/07/20 Rx Nitrofurantoin Monohyd/M-Cryst 100 mg PO BID 5 Days #10 cap 09/07/20 Rx [Macrobid] Spironolactone 50 mg PO DAILY 30 Days #30 tablet 09/07/20 Rx Allergies: No Known Drug Allergies Allergy (Verified 09/06/20 14:33) - Discharge Instructions Discharge Instructions:: You were admitted to the hospital for dehydration. Your potassium level was also slightly elevated. It is important that you STOP taking your potassium pills. You also need to reduce your lasix pills to 20 MG ONCE A DAY. You will also need to reduce your spironolactone pills to 50 MG DAILY. It is very important that you follow up with your primary care provider within one week to continue to monitor your potassium levels and make adjustments in your medications if needed. You were also found to have a urinary tract infection (UTI). You have been prescribed an antibiotic Macrobid which you will take twice daily for 5 days after leaving the hospital. This medication has been called into your pharmacy for you. Please also follow up with your primary care provider for your UTI. If you have any new, worsening, or concerning symptoms please immediately present to the nearest emergency room. Instructions: STOP Potassium CHANGE Lasix from twice a day to only once a day CHANGE Spironolactone from 100 mg daily to 50 mg daily START Macrobid twice daily for 5 days FOLLOW UP: With your primary care provider within one week, and your oncologist at [facility]. Activity:: Activity as Tolerated Nourishment:: Diabetic Diet, Heart Healthy Diet - Follow up Plan Referrals: Ten Huang MD [Primary Care Provider] - 7 Days (PLEASE CALL TO SCHEDULE AN APPOINTMENT.) Disposition: HOME Quality - Care Measures CORE MEASURES:: N/A
== END 2020-09-07 11:27 | disposition home or self-care (01) ==
LOC: ERS 00:32 → ONC 08:53 → 2NO 18:08
PROVIDERS: ADMIT Internal Medicine; ATTEND Internal Medicine
DX: E86.0 Dehydration (principal); R53.1 Weakness; T50.2X5A Adverse effect of carbonic-anhydrase inhibitors, benzothiadiazides and other diuretics, initial encounter; E87.5 Hyperkalemia; N39.0 Urinary tract infection, site not specified; C22.8 Malignant neoplasm of liver, primary, unspecified as to type; C79.9 Secondary malignant neoplasm of unspecified site; D72.829 Elevated white blood cell count, unspecified; I10 Essential (primary) hypertension; E11.9 Type 2 diabetes mellitus without complications; E78.5 Hyperlipidemia, unspecified; K21.9 Gastro-esophageal reflux disease without esophagitis; Z86.718 Personal history of other venous thrombosis and embolism; Z87.891 Personal history of nicotine dependence; Z79.01 Long term (current) use of anticoagulants; Z79.84 Long term (current) use of oral hypoglycemic drugs; Z79.899 Other long term (current) drug therapy; Z20.828 Contact with and (suspected) exposure to other viral communicable diseases
CPT/HCPCS: 71045; 80048 ×3; 80053; 82962 ×2; 83880; 84484; 85025 ×2; 87633; 93005; 94640; 99285; U0003; 36415; 36416; 81003; 81015; 87635; 96374; G0378; J1815; J2001; J3490

== ENCOUNTER 2020-10-06 09:29 | Inpatient (IN) | payer MEDICARE, OTHER ==
[2020-10-06 10:15] LABS: INR-International Normal Ratio 1.8; PTT 32.6 sec (22.9-36.1); Prothrombin Time 21.2 sec (12.0-14.7)
[2020-10-06 10:26] LABS: Hemoglobin 12.9 g/dL (12.0-16.0); Mean Corpuscular HGB CONC 31.7 g/dL (32.0-36.0); Mean Corpuscular Hemoglobin 28.6 pg (27.0-31.0); Mean Platelet Volume 7.5 fL (7.4-10.4); Platelet Count 176 thou/uL (130-400); RBC Distribution Width 15.6 % (11.5-14.5); Red Blood Cell (RBC) Count 4.53 mill/uL (4.20-5.40); White Blood Cell (WBC) Count 16.6 thou/uL (4.8-10.8)
[2020-10-06 10:29] LABS: Bilirubin Negative (Negative); Blood, Urine Negative (Negative); Clarity Clear (Clear); Glucose, Urine (Dipstick) Greater than 1000 mg/dL (Negative); Ketone, Urine Negative (Negative); Leukocyte Negative Leu/uL (Negative); Nitrite Negative (Negative); Protein, Urine (Dipstick) Negative (Neg-Trace); Urobilinogen Normal mg/dL (Less than 2)
[2020-10-06 10:31] LABS: ALT (SGPT) 73 U/L (8-55); AST (SGOT) 66 U/L (5-34); Albumin 2.5 g/dL (3.4-4.8); Alkaline Phosphatase 148 U/L (40-110); Anion Gap 17 mmol/L (10-20); BUN (Urea Nitrogen) 43 mg/dL (9.8-20.1); Calc. Creatinine Clearance 0 mL/min (70-130); Calcium 9.1 mg/dL (7.8-10.44); Carbon Dioxide 19 mmol/L (23-31); Chloride 99 mmol/L (98-107); Globulin 3.6 g/dL (2.4-3.5); Glucose 309 mg/dL (80-115); Lipase 135 U/L (8-78); Potassium 6.4 mmol/L (3.5-5.1); Protein, Total 6.1 g/dL (5.8-8.1); Sodium 129 mmol/L (136-145)
[2020-10-06] MEDS ORDERED: Cefepime 2 GM VIAL ONE ×2 (10:33→18:14)
[2020-10-06] MEDS ORDERED: Sodium Chloride 0.9% 100 ML ONE ×2 (10:33→18:14)
[2020-10-06 10:53] LABS: Hypersemented Neutrophil SLIGHT; Lymphocytes 6 % (21-51); MDiff Complete? YES; Monocytes 16 % (0-10); Neutrophil 78 % (42-75); Platelet Morphology Comment Appears Adequate; Vacuoles SLIGHT
[2020-10-06] MEDS ORDERED: Sodium Bicarbonate 2.5 MEQ/5 ML VIAL ONE (11:05)
[2020-10-06] MEDS ORDERED: Calcium Chloride 1 GM/10 ML Abboject SYRINGE ONE (11:06)
[2020-10-06] MEDS ORDERED: Insulin Regular 300 UNITS/3 ML VIAL ONE (11:06)
[2020-10-06] MEDS ORDERED: Dextrose 50% Abboject 50 ML SYRINGE ONE (11:06)
[2020-10-06] MEDS ORDERED: Vancomycin 1 GM/200 ML BAG ONE (11:22)
[2020-10-06] MEDS ORDERED: Furosemide 100 MG/10 ML VIAL SLOW IVP SCH (13:00)
[2020-10-06 13:17] LABS: Anion Gap 14 mmol/L (10-20); BUN (Urea Nitrogen) 33 mg/dL (9.8-20.1); Calc. Creatinine Clearance 0 mL/min (70-130); Calcium 8.8 mg/dL (7.8-10.44); Carbon Dioxide 17 mmol/L (23-31); Chloride 106 mmol/L (98-107); Glucose 165 mg/dL (80-115); Potassium 5.6 mmol/L (3.5-5.1); Sodium 131 mmol/L (136-145)
[2020-10-06 13:20] LABS: Lactic Acid 5.1 mmol/L (0.5-2.2)
[2020-10-06] MEDS ORDERED: Furosemide 40 MG/4 ML VIAL ONE (13:31)
[2020-10-06 13:34] LABS: Actual Bicarbonate (HCO3a) 19.1 mEq/L (22-28); Analyzer IN Cardio ER; Base Excess (BEa) -5.1 mEq/L (-2.0 to +3.0); Carboxyhemoglobin (COHb) 0.3 gm% (0.0-3.0); Hemoglobin (Hb) 12.7 g/dL (12.0-16.0); O2 Tension (PaO2), arterial 70.7 mmHg (> 80.0); pH, Arterial 7.38 (7.35-7.45)
[2020-10-06 13:37] LABS: Puncture Site RRA
[2020-10-06] MEDS ORDERED: Ondansetron PF 4 MG/2 ML Vial IVP PRN (13:40)
[2020-10-06] MEDS ORDERED: Acetaminophen 650 MG Suppository PR PRN (13:40)
[2020-10-06] MEDS ORDERED: Sodium Chloride 0.9% 1,000 ML IV SCH (14:00)
[2020-10-06] MEDS ORDERED: Albumin 25% 25 GM/100 ML BOT IVPB ONE (16:15)
[2020-10-06 17:10] LABS: Anion Gap 16 mmol/L (10-20); BUN (Urea Nitrogen) 36 mg/dL (9.8-20.1); Calc. Creatinine Clearance 0 mL/min (70-130); Calcium 9.6 mg/dL (7.8-10.44); Carbon Dioxide 20 mmol/L (23-31); Chloride 102 mmol/L (98-107); Glucose 174 mg/dL (80-115); Potassium 5.6 mmol/L (3.5-5.1); Sodium 132 mmol/L (136-145)
[2020-10-06] MEDS ORDERED: Lactulose 10 GM/15 ML Oral Solution PR SCH ×2 (17:45→22:00)
[2020-10-06] MEDS: Albumin 25% 25 GM/100 ML BOT IVPB SCH (18:35)
[2020-10-06] MEDS: Cefepime 2 GM in Sodium Chloride 0.9% 100 ML IVPB SCH (18:39)
[2020-10-06] MEDS ORDERED: Lidocaine 2% Jelly 5 ML TUBE TOP SCH (20:45)
[2020-10-06] MEDS ORDERED: Benzocaine 20% Spray 60 ML CAN FS SCH (20:45)
[2020-10-06] MEDS ORDERED: Benzocaine 20% Spray 60 ML CAN ONE (20:48)
[2020-10-06] MEDS ORDERED: Lidocaine Viscous Sol 2% 15 ml UD Cup ONE (20:48)
[2020-10-06] MEDS ORDERED: Famotidine/PF 20 mg/2ml Vial SLOW IVP SCH (21:00)
[2020-10-06] MEDS ORDERED: Morphine 2 MG/ML VIAL SLOW IVP SCH (22:45)
[2020-10-07] MEDS ORDERED: Morphine 2 MG/ML VIAL ONE (00:57)
[2020-10-07] MEDS ORDERED: Lorazepam 2 MG/ML VIAL ONE ×2 (01:36→06:00)
[2020-10-07] MEDS ORDERED: Lorazepam 2 MG/ML VIAL SLOW IVP SCH ×2 (01:45→06:30)
[2020-10-07] MEDS ORDERED: Vancomycin 1 GM/200 ML BAG ONE (02:09)
[2020-10-07] MEDS: Vancomycin HCl 1 GM in Sodium Chloride 0.9% 250 ML 300 ML IVPB SCH ×2 (02:19→13:33)
[2020-10-07] MEDS: Albumin 25% 25 GM/100 ML BOT IVPB SCH ×3 (02:26→11:19)
[2020-10-07 03:00] LABS: SARS-CoV-2 PCR by NAA Not Detected (NotDetected)
[2020-10-07] MEDS ORDERED: Cefepime 2 GM VIAL ONE (04:33)
[2020-10-07] MEDS: Cefepime 2 GM in Sodium Chloride 0.9% 100 ML IVPB SCH ×3 (04:46→18:07)
[2020-10-07 07:32] LABS: ALT (SGPT) 49 U/L (8-55); AST (SGOT) 51 U/L (5-34); Albumin 3.5 g/dL (3.4-4.8); Alkaline Phosphatase 84 U/L (40-110); Anion Gap 17 mmol/L (10-20); BUN (Urea Nitrogen) 29 mg/dL (9.8-20.1); Bilirubin, Total 2.7 mg/dL (0.2-1.2); Calc. Creatinine Clearance 0 mL/min (70-130); Calcium 9.4 mg/dL (7.8-10.44); Carbon Dioxide 19 mmol/L (23-31); Chloride 103 mmol/L (98-107); Globulin 2.4 g/dL (2.4-3.5); Glucose 204 mg/dL (80-115); Potassium 4.9 mmol/L (3.5-5.1); Protein, Total 5.9 g/dL (5.8-8.1); Sodium 134 mmol/L (136-145)
[2020-10-07 09:08] LABS: Hemoglobin 10.5 g/dL (12.0-16.0); Mean Corpuscular HGB CONC 31.8 g/dL (32.0-36.0); Mean Corpuscular Hemoglobin 28.7 pg (27.0-31.0); Mean Corpuscular Volume 90.3 fL (78.0-98.0); RBC Distribution Width 15.3 % (11.5-14.5); Red Blood Cell (RBC) Count 3.65 mill/uL (4.20-5.40)
[2020-10-07 11:25] LABS: #Lymphocytes 0.7 thou/uL (1.20-3.40); #Monocytes 1.4 thou/uL (0.11-0.59); #Neutrophils 11.6 thou/uL (1.40-6.50); %Basophils 0.1 % (0.0-1.0); %Eosinophils 0.1 % (0.0-10.0); %Lymphocytes 4.8 % (21.0-51.0); %Monocytes 10.5 % (0.0-10.0); %Neutrophils 84.6 % (42.0-75.0); Mean Platelet Volume 8.4 fL (7.4-10.4); Platelet Count 65 thou/uL (130-400); Platelet Morphology Comment Appears Decreased; White Blood Cell (WBC) Count 13.7 thou/uL (4.8-10.8)
[2020-10-07] MEDS: Vancomycin 1 GM in Premix Bag 1 BAG IVPB SCH (13:31)
[2020-10-07] MEDS ORDERED: Cefepime 2 GM in Sodium Chloride 0.9% 100 ML IVPB SCH (18:30)
[2020-10-08] MEDS ORDERED: Cefepime 2 GM in Sodium Chloride 0.9% 100 ML IVPB SCH (02:00)
[2020-10-08] MEDS: Vancomycin 1 GM in Premix Bag 1 BAG IVPB SCH (02:09)
[2020-10-08 05:51] LABS: #Lymphocytes 0.5 thou/uL (1.20-3.40); #Monocytes 1.3 thou/uL (0.11-0.59); #Neutrophils 12.7 thou/uL (1.40-6.50); %Basophils 0.1 % (0.0-1.0); %Eosinophils 0.2 % (0.0-10.0); %Lymphocytes 3.4 % (21.0-51.0); %Monocytes 9.1 % (0.0-10.0); %Neutrophils 87.2 % (42.0-75.0); Hemoglobin 10.9 g/dL (12.0-16.0); Mean Corpuscular HGB CONC 31.2 g/dL (32.0-36.0); Mean Corpuscular Volume 89.9 fL (78.0-98.0); Mean Platelet Volume 8.3 fL (7.4-10.4); Platelet Count 85 thou/uL (130-400); RBC Distribution Width 15.5 % (11.5-14.5); Red Blood Cell (RBC) Count 3.89 mill/uL (4.20-5.40); White Blood Cell (WBC) Count 14.5 thou/uL (4.8-10.8)
[2020-10-08 06:22] LABS: ALT (SGPT) 59 U/L (8-55); AST (SGOT) 59 U/L (5-34); Albumin 3.8 g/dL (3.4-4.8); Alkaline Phosphatase 100 U/L (40-110); Anion Gap 12 mmol/L (10-20); BUN (Urea Nitrogen) 24 mg/dL (9.8-20.1); Bilirubin, Total 3.5 mg/dL (0.2-1.2); Calc. Creatinine Clearance 86 mL/min (70-130); Calcium 10.1 mg/dL (7.8-10.44); Carbon Dioxide 22 mmol/L (23-31); Chloride 106 mmol/L (98-107); Globulin 2.7 g/dL (2.4-3.5); Glucose 217 mg/dL (80-115); Potassium 4.2 mmol/L (3.5-5.1); Protein, Total 6.5 g/dL (5.8-8.1); Sodium 136 mmol/L (136-145)
[2020-10-08] MEDS: cefTRIAXone\\ROCEPHIN 2 GM in Sodium Chloride 0.9% 100 ML IVPB SCH (10:25)
[2020-10-08] MEDS ORDERED: Iopamidol 370 76% 100 ML VIAL ONE (12:10)
[2020-10-08] MEDS ORDERED: Iopamidol 370 76% 50 ML VIAL FS ONE (12:10)
[2020-10-08 18:31] LABS: Fluid, Triglycerides 48 mg/dL (Not Available); Pleural Fluid, Amylase Less than 30 U/L (Not Available); Pleural Fluid, Glucose 198 mg/dL; Pleural Fluid, LDH 70 U/L (Not Available); Pleural Fluid, Protein Less than 1.0 g/dL
[2020-10-08 19:13] LABS: RBC Count-Automated (BF) 11204 /cu.mm; WBC/Nucleated-Auto (BF) 324 uL
[2020-10-08 19:19] LABS: Body Fluid Source Pleural Fluid; Clarity Cloudy/Turbid (Clear); Tube # 3
[2020-10-08 19:23] LABS: BF Segmented Neutrophils 54 %; Cell Count Non Hematic 34 %; Lymphocytes 12 %
[2020-10-08] MEDS ORDERED: FLU VACC QS2020-21(65YR UP)/PF 240 MCG/0.7 ML SYRINGE IM ONE (21:00)
[2020-10-09 05:16] LABS: #Lymphocytes 0.6 thou/uL (1.20-3.40); #Monocytes 1.3 thou/uL (0.11-0.59); #Neutrophils 10.6 thou/uL (1.40-6.50); %Basophils 0.2 % (0.0-1.0); %Eosinophils 0.1 % (0.0-10.0); %Lymphocytes 4.7 % (21.0-51.0); %Monocytes 10.4 % (0.0-10.0); %Neutrophils 84.6 % (42.0-75.0); Hemoglobin 11.3 g/dL (12.0-16.0); Mean Corpuscular HGB CONC 31.2 g/dL (32.0-36.0); Mean Corpuscular Hemoglobin 28.2 pg (27.0-31.0); Mean Corpuscular Volume 90.5 fL (78.0-98.0); Mean Platelet Volume 8.6 fL (7.4-10.4); Platelet Count 74 thou/uL (130-400); RBC Distribution Width 15.6 % (11.5-14.5); Red Blood Cell (RBC) Count 3.99 mill/uL (4.20-5.40); White Blood Cell (WBC) Count 12.5 thou/uL (4.8-10.8)
[2020-10-09 06:04] LABS: ALT (SGPT) 55 U/L (8-55); AST (SGOT) 57 U/L (5-34); Albumin 3.2 g/dL (3.4-4.8); Alkaline Phosphatase 100 U/L (40-110); Anion Gap 12 mmol/L (10-20); BUN (Urea Nitrogen) 17 mg/dL (9.8-20.1); Bilirubin, Total 2.5 mg/dL (0.2-1.2); Calc. Creatinine Clearance 88 mL/min (70-130); Calcium 9.9 mg/dL (7.8-10.44); Carbon Dioxide 21 mmol/L (23-31); Chloride 111 mmol/L (98-107); Globulin 2.5 g/dL (2.4-3.5); Glucose 188 mg/dL (80-115); Potassium 3.8 mmol/L (3.5-5.1); Protein, Total 5.7 g/dL (5.8-8.1); Sodium 140 mmol/L (136-145)
[2020-10-09] MEDS: cefTRIAXone\\ROCEPHIN 2 GM in Sodium Chloride 0.9% 100 ML IVPB SCH (08:01)
[2020-10-09] MEDS: metFORMIN XR 500 MG TAB PO SCH (16:20)
[2020-10-09] MEDS: Mometasone 200 MCG/Formoterol 5 MCG 120 PUFF INHALER INH SCH (18:38)
[2020-10-09] MEDS ORDERED: Non-Formulary Item 1 EACH (Fluticasone/Salmeterol [Wixela 250-50 Inhub] 1 EACH Blst.W.Dev INH SCH (21:00)
[2020-10-10 05:06] LABS: #Lymphocytes 0.4 thou/uL (1.20-3.40); #Monocytes 1.1 thou/uL (0.11-0.59); #Neutrophils 7.9 thou/uL (1.40-6.50); %Eosinophils 0.4 % (0.0-10.0); %Lymphocytes 4.5 % (21.0-51.0); %Monocytes 11.9 % (0.0-10.0); %Neutrophils 83.2 % (42.0-75.0); Hemoglobin 11.8 g/dL (12.0-16.0); Mean Corpuscular HGB CONC 31.3 g/dL (32.0-36.0); Mean Corpuscular Hemoglobin 28.7 pg (27.0-31.0); Mean Corpuscular Volume 91.5 fL (78.0-98.0); Mean Platelet Volume 8.7 fL (7.4-10.4); Platelet Count 78 thou/uL (130-400); RBC Distribution Width 15.9 % (11.5-14.5); Red Blood Cell (RBC) Count 4.13 mill/uL (4.20-5.40); White Blood Cell (WBC) Count 9.5 thou/uL (4.8-10.8)
[2020-10-10 05:26] LABS: ALT (SGPT) 113 U/L (8-55); AST (SGOT) 149 U/L (5-34); Albumin 3.3 g/dL (3.4-4.8); Alkaline Phosphatase 113 U/L (40-110); Anion Gap 16 mmol/L (10-20); BUN (Urea Nitrogen) 22 mg/dL (9.8-20.1); Bilirubin, Total 2.3 mg/dL (0.2-1.2); Calc. Creatinine Clearance 63 mL/min (70-130); Calcium 9.6 mg/dL (7.8-10.44); Carbon Dioxide 18 mmol/L (23-31); Chloride 108 mmol/L (98-107); Globulin 2.6 g/dL (2.4-3.5); Glucose 527 mg/dL (80-115); Potassium 3.7 mmol/L (3.5-5.1); Protein, Total 5.9 g/dL (5.8-8.1); Sodium 138 mmol/L (136-145)
[2020-10-10] MEDS: Mometasone 200 MCG/Formoterol 5 MCG 120 PUFF INHALER INH SCH ×2 (06:20→17:20)
[2020-10-10] MEDS ORDERED: Dextrose 5% in Water 1,000 ML IV PRN (08:06)
[2020-10-10] MEDS ORDERED: Dextrose 50% Abboject 50 ML SYRINGE SLOW IVP PRN (08:06)
[2020-10-10] MEDS ORDERED: metFORMIN XR 500 MG TAB PO SCH (09:00)
[2020-10-10] MEDS ORDERED: Non-Formulary Item 1 EACH (Canagliflozin [Invokana] 100 MG Tablet) PO SCH (09:00)
[2020-10-10] MEDS: Empagliflozin 10 MG TAB PO SCH (09:21)
[2020-10-10] MEDS: cefTRIAXone\\ROCEPHIN 2 GM in Sodium Chloride 0.9% 100 ML IVPB SCH (09:21)
[2020-10-10] MEDS: Furosemide 20 MG TAB PO SCH (09:22)
[2020-10-10] MEDS: Spironolactone 100 MG TAB PO SCH (09:22)
[2020-10-10] MEDS: HumaLOG 300 UNITS/3 ML VIAL SC PRN ×2 (10:47→17:17)
[2020-10-10] MEDS: metFORMIN XR 500 MG TAB PO SCH (17:18)
[2020-10-11 06:26] LABS: ALT (SGPT) 172 U/L (8-55); AST (SGOT) 208 U/L (5-34); Albumin 3.2 g/dL (3.4-4.8); Alkaline Phosphatase 121 U/L (40-110); Anion Gap 17 mmol/L (10-20); BUN (Urea Nitrogen) 22 mg/dL (9.8-20.1); Bilirubin, Total 3.7 mg/dL (0.2-1.2); Calc. Creatinine Clearance 66 mL/min (70-130); Carbon Dioxide 19 mmol/L (23-31); Chloride 111 mmol/L (98-107); Globulin 2.8 g/dL (2.4-3.5); Glucose 232 mg/dL (80-115); Potassium 4.1 mmol/L (3.5-5.1); Sodium 143 mmol/L (136-145)
[2020-10-11 06:28] LABS: Eosinophils 1 % (0-10); Hemoglobin 12.7 g/dL (12.0-16.0); MDiff Complete? YES; Mean Corpuscular HGB CONC 30.9 g/dL (32.0-36.0); Mean Corpuscular Hemoglobin 28.9 pg (27.0-31.0); Mean Corpuscular Volume 93.4 fL (78.0-98.0); Mean Platelet Volume 8.7 fL (7.4-10.4); Monocytes 11 % (0-10); Neutrophil 88 % (42-75); Platelet Count 59 thou/uL (130-400); Platelet Morphology Comment Appears Decreased; RBC Distribution Width 15.7 % (11.5-14.5); RBC Morphology Normal; Red Blood Cell (RBC) Count 4.39 mill/uL (4.20-5.40); White Blood Cell (WBC) Count 14.3 thou/uL (4.8-10.8)
[2020-10-11] MEDS: HumaLOG 300 UNITS/3 ML VIAL SC PRN ×3 (06:33→21:00)
[2020-10-11] MEDS: Mometasone 200 MCG/Formoterol 5 MCG 120 PUFF INHALER INH SCH ×2 (07:25→19:18)
[2020-10-11] MEDS: cefTRIAXone\\ROCEPHIN 2 GM in Sodium Chloride 0.9% 100 ML IVPB SCH (08:19)
[2020-10-11] MEDS: Rifaximin 550 MG TAB PO SCH ×2 (08:20→19:47)
[2020-10-11] MEDS: Furosemide 20 MG TAB PO SCH (08:21)
[2020-10-11] MEDS: Empagliflozin 10 MG TAB PO SCH (11:27)
[2020-10-11] MEDS: Spironolactone 100 MG TAB PO SCH (11:28)
[2020-10-11] MEDS: metFORMIN XR 500 MG TAB PO SCH (17:30)
[2020-10-11] MEDS ORDERED: Melatonin 3 MG TAB PO PRN (20:19)
[2020-10-12 05:37] VITALS: BMI 21.5
[2020-10-12] MEDS: Mometasone 200 MCG/Formoterol 5 MCG 120 PUFF INHALER INH SCH (07:30)
[2020-10-12] MEDS: cefTRIAXone\\ROCEPHIN 2 GM in Sodium Chloride 0.9% 100 ML IVPB SCH (07:57)
[2020-10-12] MEDS: Spironolactone 100 MG TAB PO SCH (07:58)
[2020-10-12] MEDS: Furosemide 20 MG TAB PO SCH (07:58)
[2020-10-12] MEDS: Empagliflozin 10 MG TAB PO SCH (07:58)
[2020-10-12] MEDS: Rifaximin 550 MG TAB PO SCH (07:59)
[2020-10-12] MEDS: HumaLOG 300 UNITS/3 ML VIAL SC PRN (12:42)
[2020-10-12 14:37] VITALS: BP 117/74; TEMP 97.2
== END 2020-10-12 14:43 | disposition home or self-care (01) | DRG 871 ==
LOC: ERS 09:29 → ERHOLD 14:36 → 2SW 10-07 09:27 → T4-B 10-10 12:12
PROVIDERS: ADMIT Internal Medicine; ATTEND Internal Medicine
PROC: 0W993ZZ Drainage of Right Pleural Cavity, Percutaneous Approach (ICD-10-PCS; principal; 2020-10-06)
DX: A40.1 Sepsis due to streptococcus, group B (principal); I81 Portal vein thrombosis; Z51.5 Encounter for palliative care; Z20.822 Contact with and (suspected) exposure to COVID-19; K55.059 Acute (reversible) ischemia of intestine, part and extent unspecified; K72.00 Acute and subacute hepatic failure without coma; E87.2 Acidosis; J90 Pleural effusion, not elsewhere classified; N17.9 Acute kidney failure, unspecified; J94.8 Other specified pleural conditions; J98.11 Atelectasis; E11.9 Type 2 diabetes mellitus without complications; E87.5 Hyperkalemia; E86.0 Dehydration; J45.909 Unspecified asthma, uncomplicated; B18.2 Chronic viral hepatitis C; N90.89 Other specified noninflammatory disorders of vulva and perineum; Z86.73 Personal history of transient ischemic attack (TIA), and cerebral infarction without residual deficits; Z90.710 Acquired absence of both cervix and uterus; Z28.21 Immunization not carried out because of patient refusal; Z78.1 Physical restraint status; Z90.49 Acquired absence of other specified parts of digestive tract; Z79.899 Other long term (current) drug therapy; Z79.84 Long term (current) use of oral hypoglycemic drugs
CPT/HCPCS: 36415; 36416; 36600; 51701; 70450; 71045; 71260; 74018; 74177; 80053; 80202; 81003; 82140; 82150; 82805; 82945; 83605; 83615; 83690; 83986; 84145; 84157; 84478; 84484; 85025; 85060; 85610; 85730; 87040; 87070; 87077; 87086; 87116; 87149; 87186; 87205; 87206; 87635; 88112; 88305; 89051; 93005; 96365; 96367; 96374; 96375; J0692; J0696; J1815; J1940; J2060; J2270; J3370; J3490; J7050; P9047; Q9967; U0003; U0005